=== PATIENT | male | born 1965 | race Caucasian/White ===

== ENCOUNTER 2016-09-30 03:29 | Emergency (ER) | payer MEDICARE ==
[2016-09-30] MEDS ORDERED: METOCLOPRAMIDE HCL INJ/PF 10 MG/2 ML SDV IV ONE (04:12)
[2016-09-30] MEDS ORDERED: MORPHINE SULFATE 10 MG/ML INJ IV ONE (04:12)
--- NOTE | 2016-09-30 04:12 | ER Document Report ---
ED General - General Chief Complaint: Nausea Stated Complaint: NAUSEA Mode of Arrival: Ambulatory Information source: Patient Notes: 50 yr old male presents with complaints of nausea without any abdominal pain over the past week. pt denies any vomiting, denies any chest pain sob , or any other comlpaints. pt notes he could not take his chronic pain meds since he was so nauseated. TRAVEL OUTSIDE OF THE [place] IN LAST 30 DAYS: No - HPI Onset: Last week Onset/Duration: Persistent Quality of pain: No pain Severity: Mild Pain Level: Denies Associated symptoms: Nausea Exacerbated by: Denies Relieved by: Denies Similar symptoms previously: No Recently seen / treated by doctor: No - Related Data Allergies/Adverse Reactions: Penicillins Allergy (Verified 12/08/13 10:34) vancomycin Allergy (Verified 07/27/16 11:06) Past Medical History - Social History Smoking Status: Never Smoker Cigarette use (# per day): No Chew tobacco use (# tins/day): No Smoking Education Provided: No Frequency of alcohol use: None Drug Abuse: None Family History: Arthritis, CAD, COPD, CVA, DM, Hyperlipidemia, Hypertension, Thyroid Disfunction. denies: Malignancy - Past Medical History Cardiac Medical History: Reports: Hx Hypercholesterolemia, Hx Hypertension Pulmonary Medical History: Reports: Hx Bronchitis, Hx Pneumonia Endocrine Medical History: Reports: Hx Diabetes Mellitus Type 2 - diabetic neuropathy all extremities Renal/ Medical History: Reports: Hx Benign Prostatic Hyperplasia, Hx Kidney Stones. Denies: Hx Peritoneal Dialysis Musculoskeltal Medical History: Reports Hx Arthritis, Reports Hx Gout, Reports Hx Muscle Weakness, Reports Hx Musculoskeletal Deformity, Reports Hx Musculoskeletal Trauma - hand Skin Medical History: Reports Hx Cellulitis Psychiatric Medical History: Reports: Hx Anxiety, Hx Bipolar Disorder, Hx Depression, Hx Obsessive Compulsive Disorder, Hx Post Traumatic Stress Disorder Traumatic Medical History: Reports: Hx Fractures Past Surgical History: Reports: Hx Adenoidectomy, Hx Cholecystectomy, Hx Orthopedic Surgery - back neck toe, Hx Tonsillectomy - Immunizations Immunizations up to date: Yes Hx Diphtheria, Pertussis, Tetanus Vaccination: Yes - 2014 Review of Systems - Review of Systems Notes: REVIEW OF SYSTEMS: CONSTITUTIONAL : Denies fever, chills, or sweats. Denies recent illness. EENT: Denies eye, ear, throat, or mouth pain or symptoms. Denies nasal or sinus congestion or discharge. Denies throat, tongue, or mouth swelling or difficulty swallowing. CARDIOVASCULAR: Denies chest pain. Denies palpitations or racing or irregular heart beat. Denies ankle edema. RESPIRATORY: Denies cough, cold, or chest congestion. Denies shortness of breath, difficulty breathing, or wheezing. GASTROINTESTINAL: Admits nausea GENITOURINARY: Denies difficulty urinating, painful urination, burning, frequency, blood in urine, or discharge. MUSCULOSKELETAL: Denies back or neck pain or stiffness. Denies joint pain or swelling. SKIN: Denies rash, lesions or sores. HEMATOLOGIC : Denies easy bruising or bleeding. LYMPHATIC: Denies swollen, enlarged glands. NEUROLOGICAL: Denies confusion or altered mental status. Denies passing out or loss of consciousness. Denies dizziness or lightheadedness. Denies headache. Denies weakness or paralysis or loss of use of either side. Denies problems with gait or speech. Denies sensory loss, numbness, or tingling. Denies seizures. PSYCHIATRIC: Denies anxiety or stress. Denies depression, suicidal ideation, or homicidal ideation. ALL OTHER SYSTEMS REVIEWED AND NEGATIVE. Dictation was performed using [employer] recognition software PHYSICAL EXAMINATION: GENERAL: Well-appearing, well-nourished and in no acute distress. HEAD: Atraumatic, normocephalic. EYES: Pupils equal round and reactive to light, extraocular movements intact, sclera anicteric, conjunctiva are normal. ENT: Nares patent, oropharynx clear without exudates. Moist mucous membranes. NECK: Normal range of motion, supple without lymphadenopathy LUNGS: Breath sounds clear to auscultation bilaterally and equal. No wheezes rales or rhonchi. HEART: Regular rate and rhythm without murmurs ABDOMEN: Soft, nontender, nondistended abdomen. No guarding, no rebound. No masses appreciated. Musculoskeletal: Normal range of motion, no pitting or edema. No cyanosis. NEUROLOGICAL: Cranial nerves grossly intact. Normal speech, normal gait. Normal sensory, motor exams PSYCH: Normal mood, normal affect. SKIN: Warm, Dry, normal turgor, no rashes or lesions noted. Physical Exam - Vital signs Vitals: Temp Pulse Resp BP Pulse Ox 97.6 F 89 20 125/64 94 09/30/16 03:44 09/30/16 03:44 09/30/16 03:44 09/30/16 03:44 09/30/16 03:44 Course - Re-evaluation Re-evalutation: 09/30/16 04:57 Lab work is pending at this time, patient is in no significant distress. He'll be given nausea control fluids 09/30/16 06:04 Patient's CBC CMP notes no significant abnormality, he did have some glucose in his urine and was given 2 L of fluid, patient notes he feels much better. His nausea is well controlled at this time. Cardiac enzymes pending 09/30/16 06:17 labs all appear well , will dc home since he feels well After performing a Medical Screening Examination, I estimate there is LOW risk for ACUTE CORONARY SYNDROME, RESPIRATORY FAILURE, SEPSIS OR MENINGITIS, thus I consider the discharge disposition reasonable. The patient and I have discussed the diagnosis and risks, and we agree with discharging home with close follow- up. We also discussed returning to the Emergency Department immediately if new or worsening symptoms occur. We have discussed the symptoms which are most concerning (e.g., changing or worsening pain, trouble swallowing or breathing, neck stiffness, fever) that necessitate immediate return. - Vital Signs Vital signs: Temp Pulse Resp BP Pulse Ox 97.6 F 89 20 125/64 94 09/30/16 03:44 09/30/16 03:44 09/30/16 03:44 09/30/16 03:44 09/30/16 03:44 - Laboratory Result Diagrams: 09/30/16 04:45 09/30/16 05:15 Laboratory results interpreted by me: 09/30/16 09/30/16 09/30/16 04:30 04:45 05:15 WBC 12.9 H MCHC 31.8 L RDW 14.9 H Seg Neutrophils % 78.7 H Absolute Neutrophils 10.2 H Carbon Dioxide 19 L Glucose 282 H POC Glucose Urine Protein 100 H Urine Glucose (UA) >=500 H Urine Ketones TRACE H 09/30/16 05:33 WBC MCHC RDW Seg Neutrophils % Absolute Neutrophils Carbon Dioxide Glucose POC Glucose 265 H Urine Protein Urine Glucose (UA) Urine Ketones - EKG Interpretation by Ms EKG shows normal: Sinus rhythm, [place], Intervals, QRS Complexes [place]/QRS: LAHB/LAFB When compared to previous EKG there are: Changes noted Discharge - Discharge Clinical Impression: Nausea, Hyperglycemia Condition: Stable Disposition: HOME, SELF-CARE Instructions: Nausea or Vomiting, Nonspecific ([facility]) Additional Instructions: Follow up with your physician tomorrow for further care or return to the ED IMMEDIATELY if symptoms worsen or new concerns occur Prescriptions: Promethazine HCl [Phenergan 25 mg Tablet] 1 - 2 tab PO Q6H PRN #15 tablet PRN Reason:
[2016-09-30] MEDS ORDERED: NORMAL SALINE 1000 ML 1,000 ML IV ONE ×2 (04:26→05:01)
[2016-09-30 04:53] LABS: APPEARANCE,URINE CLEAR; BILIRUBIN,URINE NEGATIVE (NEGATIVE); GLUCOSE, URINE >=500 mg/dL (NEGATIVE); KETONES,URINE TRACE mg/dL (NEGATIVE); LEUKOCYTE ESTERASE,URINE NEGATIVE (NEGATIVE); NITRITE,URINE NEGATIVE (NEGATIVE); PROTEIN,URINE 100 mg/dL (NEGATIVE); UROBILINOGEN,URINE NEGATIVE mg/dL (<2.0)
[2016-09-30 04:59] LABS: ABSOLUTE BASOPHILS # (AUTO) 0.1 10^3/uL (0.0-0.2); ABSOLUTE EOSINOPHILS # (AUTO) 0.2 10^3/uL (0.0-0.6); ABSOLUTE LYMPHOCYTES (AUTO) 1.8 10^3/uL (0.5-4.7); ABSOLUTE MONOCYTES (AUTO) 0.7 10^3/uL (0.1-1.4); ABSOLUTE NEUT (AUTO) 10.2 10^3/uL (1.7-8.2); BASOPHILS % (AUTO) 0.5 % (0-2); EOSINOPHILS % (AUTO) 1.4 % (0-6); HEMATOCRIT 44.9 % (37.9-51.0); HEMOGLOBIN 14.3 g/dL (13.5-17.0); LYMPHOCYTES % (AUTO) 13.9 % (13-45); MEAN CORPUSCULAR HEMOGLOBIN 27.4 pg (27.0-33.4); MEAN CORPUSCULAR HGB CONC 31.8 g/dL (32.0-36.0); MEAN CORPUSCULAR VOLUME 86 fl (80-97); MONOCYTES % (AUTO) 5.5 % (3-13); RED CELL DISTRIBUTION WIDTH 14.9 % (11.5-14.0); SEGMENTED NEUTROPHILS % (AUTO) 78.7 % (42-78); WHITE BLOOD COUNT 12.9 10^3/uL (4.0-10.5)
[2016-09-30] MEDS ORDERED: PROMETHAZINE HCL INJ 25 MG/1 ML VIAL IM ONE (05:14)
[2016-09-30] MEDS ORDERED: ONDANSETRON HCL INJ/PF 4 MG/2 ML SDV IV ONE (05:18)
[2016-09-30 05:42] LABS: VENOUS BLOOD BASE EXCESS -2.9 mmol/L; VENOUS BLOOD HCO3 21.7 mmol/L (20-32); VENOUS BLOOD PCO2 37.4 mmHg (35-63); VENOUS BLOOD PH 7.38 (7.30-7.42)
[2016-09-30 06:00] LABS: ALANINE AMINOTRANSFERASE 36 U/L (21-72); ALBUMIN 3.7 g/dL (3.5-5.0); ALKALINE PHOSPHATASE 96 U/L (38-126); ANION GAP 14 (5-19); ASPARTATE AMINO TRANSFERASE 25 U/L (17-59); BILIRUBIN,TOTAL 0.6 mg/dL (0.2-1.3); BLOOD UREA NITROGEN 14 mg/dL (7-20); CALCIUM 9.4 mg/dL (8.4-10.2); CARBON DIOXIDE 19 mmol/L (22-30); CHLORIDE 107 mmol/L (98-107); CREATININE RESULT 0.74 mg/dL (0.52-1.25); GLUCOSE 282 mg/dL (75-110); LIPASE 85.4 U/L (23-300); POTASSIUM 4.5 mmol/L (3.6-5.0); SODIUM 139.6 mmol/L (137-145); TOTAL PROTEIN 7.5 g/dL (6.3-8.2)
[2016-09-30 06:12] LABS: CREATINE KINASE MB 2.69 ng/mL (<4.55); TROPONIN I < 0.012 ng/mL
[2016-09-30] MEDS ORDERED: PROMETHAZINE HCL INJ 50 MG/1 ML VIAL ONE (06:13)
[2016-09-30 06:44] VITALS: BP 168/79
--- NOTE | 2016-09-30 09:24 | EKG REPORT ---
SEVERITY:- ABNORMAL ECG - SINUS RHYTHM RBBB AND LAFB LEFT VENTRICULAR HYPERTROPHY : Confirmed by: Liss Gloria MD 30-Sep-2016 09:23:40
== END 2016-09-30 06:45 | disposition home or self-care (01) ==
LOC: ER 03:29
DX: R11.0 Nausea (principal); E11.40 Type 2 diabetes mellitus with diabetic neuropathy, unspecified; E11.65 Type 2 diabetes mellitus with hyperglycemia; E78.00 Pure hypercholesterolemia, unspecified; I10 Essential (primary) hypertension; Z88.0 Allergy status to penicillin; Z88.3 Allergy status to other anti-infective agents; Z87.442 Personal history of urinary calculi; Z90.49 Acquired absence of other specified parts of digestive tract
CPT/HCPCS: 93005; 99284; 96372; 96361; 96374; 96375; 36415; 82553; 82962; 82550; 83690; 85025; 80053; 81001; 84484; 82803; 93010; J2765; J2270; J2550; J2405; J7030

== ENCOUNTER 2016-11-02 11:07 | Emergency (ER) | payer MEDICARE ==
[2016-11-02 13:07] LABS: ABSOLUTE BASOPHILS # (AUTO) 0.1 10^3/uL (0.0-0.2); ABSOLUTE EOSINOPHILS # (AUTO) 0.2 10^3/uL (0.0-0.6); ABSOLUTE MONOCYTES (AUTO) 0.9 10^3/uL (0.1-1.4); BASOPHILS % (AUTO) 0.7 % (0-2); EOSINOPHILS % (AUTO) 1.3 % (0-6); HEMATOCRIT 43.5 % (37.9-51.0); HEMOGLOBIN 14.4 g/dL (13.5-17.0); HGB HCT DIFFERENCE -0.3; LYMPHOCYTES % (AUTO) 21.1 % (13-45); MEAN CORPUSCULAR HEMOGLOBIN 27.8 pg (27.0-33.4); MEAN CORPUSCULAR HGB CONC 33.1 g/dL (32.0-36.0); MEAN CORPUSCULAR VOLUME 84 fl (80-97); MONOCYTES % (AUTO) 6.3 % (3-13); RED BLOOD COUNT 5.19 10^6/uL (4.35-5.55); RED CELL DISTRIBUTION WIDTH 14.3 % (11.5-14.0); SEGMENTED NEUTROPHILS % (AUTO) 70.6 % (42-78); WHITE BLOOD COUNT 14.2 10^3/uL (4.0-10.5)
[2016-11-02 13:27] LABS: ALANINE AMINOTRANSFERASE 35 U/L (21-72); ALBUMIN 3.7 g/dL (3.5-5.0); ALKALINE PHOSPHATASE 100 U/L (38-126); ANION GAP 14 (5-19); ASPARTATE AMINO TRANSFERASE 23 U/L (17-59); BILIRUBIN,TOTAL 0.6 mg/dL (0.2-1.3); BLOOD UREA NITROGEN 16 mg/dL (7-20); CALCIUM 9.9 mg/dL (8.4-10.2); CARBON DIOXIDE 21 mmol/L (22-30); CHLORIDE 102 mmol/L (98-107); CREATINE KINASE 71 U/L (55-170); CREATININE RESULT 0.71 mg/dL (0.52-1.25); GLUCOSE 217 mg/dL (75-110); POTASSIUM 4.5 mmol/L (3.6-5.0); SODIUM 136.7 mmol/L (137-145); TOTAL PROTEIN 8.2 g/dL (6.3-8.2)
[2016-11-02 13:38] LABS: CREATINE KINASE MB 1.85 ng/mL (<4.55)
[2016-11-02 13:42] LABS: TROPONIN I < 0.012 ng/mL
[2016-11-02 14:01] LABS: APPEARANCE,URINE CLEAR; BILIRUBIN,URINE NEGATIVE (NEGATIVE); GLUCOSE, URINE >=500 mg/dL (NEGATIVE); KETONES,URINE NEGATIVE (NEGATIVE); LEUKOCYTE ESTERASE,URINE NEGATIVE (NEGATIVE); NITRITE,URINE NEGATIVE (NEGATIVE); PROTEIN,URINE 30 mg/dL (NEGATIVE); URINE SPECIFIC GRAVITY 1.007; UROBILINOGEN,URINE NEGATIVE mg/dL (<2.0)
--- NOTE | 2016-11-02 18:37 | ER Document Report ---
ED General - General Chief Complaint: Anxiety Stated Complaint: WEAKNESS Notes: The patient is a 50-year-old male, past medical history anxiety, chronic pain, presents with increasing anxiety over the past few days. He says he feels like he is going to and feels like his blood pressure becomes elevated. He takes his Klonopin and the symptoms go away. He was taken off any blood pressure medications because his blood pressure would become low with a combination of his opioids, benzos and BP meds. Patient denies chest pain, shortness of breath, nausea, vomiting, suicidal ideation, homicidal ideation, headache, fevers or back pain. TRAVEL OUTSIDE OF THE [place] IN LAST 30 DAYS: No - Related Data Allergies/Adverse Reactions: Penicillins Allergy (Verified 11/02/16 18:42) vancomycin Allergy (Verified 11/02/16 18:42) Past Medical History - General Information source: Patient - Social History Smoking Status: Unknown if Ever Smoked Family History: Arthritis, CAD, COPD, CVA, DM, Hyperlipidemia, Hypertension, Thyroid Disfunction. denies: Malignancy - Past Medical History Cardiac Medical History: Reports: Hx Hypercholesterolemia, Hx Hypertension Pulmonary Medical History: Reports: Hx Bronchitis, Hx Pneumonia Endocrine Medical History: Reports: Hx Diabetes Mellitus Type 2 - diabetic neuropathy all extremities Renal/ Medical History: Reports: Hx Benign Prostatic Hyperplasia, Hx Kidney Stones. Denies: Hx Peritoneal Dialysis Musculoskeltal Medical History: Reports Hx Arthritis, Reports Hx Gout, Reports Hx Muscle Weakness, Reports Hx Musculoskeletal Deformity, Reports Hx Musculoskeletal Trauma - hand Skin Medical History: Reports Hx Cellulitis Psychiatric Medical History: Reports: Hx Anxiety, Hx Bipolar Disorder, Hx Depression, Hx Obsessive Compulsive Disorder, Hx Post Traumatic Stress Disorder Traumatic Medical History: Reports: Hx Fractures Past Surgical History: Reports: Hx Adenoidectomy, Hx Cholecystectomy, Hx Orthopedic Surgery - back neck toe, Hx Tonsillectomy - Immunizations Immunizations up to date: Yes Hx Diphtheria, Pertussis, Tetanus Vaccination: Yes - 2014 Review of Systems - Review of Systems Notes: REVIEW OF SYSTEMS: CONSTITUTIONAL: -fevers, -chills EENT: -eye pain, -difficulty swallowing, -nasal congestion CARDIOVASCULAR:-chest pain, -syncope. RESPIRATORY: -cough, -SOB GASTROINTESTINAL: -abdominal pain, - nausea, -vomiting, -diarrhea GENITOURINARY: -dysuria, -hematuria MUSCULOSKELETAL: -back pain, -neck pain SKIN: -rash or skin lesions. HEMATOLOGIC: -easy bruising or bleeding. LYMPHATIC: -swollen, enlarged glands. NEUROLOGICAL: -altered mental status or loss of consciousness, -headache, - neurologic symptoms PSYCHIATRIC: +anxiety, -depression. ALL OTHER SYSTEMS REVIEWED AND NEGATIVE. Physical Exam - Vital signs Vitals: Temp Pulse Resp BP Pulse Ox 98.4 F 92 14 169/84 H 93 11/02/16 11:28 11/02/16 11:28 11/02/16 11:28 11/02/16 11:28 11/02/16 11:28 - Notes Notes: PHYSICAL EXAMINATION: GENERAL: Well-appearing, well-nourished and in no acute distress. HEAD: Atraumatic, normocephalic. EYES: Pupils equal round and reactive to light, extraocular movements intact, sclera anicteric, conjunctiva are normal. ENT: nares patent, oropharynx clear without exudates. Moist mucous membranes. NECK: Normal range of motion, supple without lymphadenopathy LUNGS: Breath sounds clear to auscultation bilaterally and equal. No wheezes rales or rhonchi. HEART: Regular rate and rhythm without murmurs ABDOMEN: Soft, nontender, normoactive bowel sounds. No guarding, no rebound. No masses appreciated. EXTREMITIES: Normal range of motion, no pitting or edema. No cyanosis. NEUROLOGICAL: Cranial nerves grossly intact. Normal speech, normal gait. Normal sensory, motor, and reflex exams. PSYCH: Normal mood, normal affect. SKIN: Warm, Dry, normal turgor, no rashes or lesions noted. Course - Re-evaluation Re-evalutation: [facility] after consulting with me. He feels much better. Labs, EKG and chest x-ray ordered from triage are all unremarkable. Blood pressure is 169/80. Told him to discuss this with his primary care physician and I would not add an antihypertensive medication currently due to his history of hypotension. He is currently asymptomatic. Given her return precautions and he understands. - Vital Signs Vital signs: Temp Pulse Resp BP Pulse Ox 97.7 F 90 16 160/83 H 96 11/02/16 18:46 11/02/16 18:46 11/02/16 18:46 11/02/16 18:46 11/02/16 18:46 - Laboratory Result Diagrams: 11/02/16 12:45 11/02/16 12:45 Laboratory results interpreted by me: 11/02/16 11/02/16 11/02/16 12:45 12:45 12:45 WBC 14.2 H RDW 14.3 H Absolute Neutrophils 10.0 H Sodium 136.7 L Carbon Dioxide 21 L Glucose 217 H Urine Protein 30 H Urine Glucose (UA) >=500 H Discharge - Discharge Clinical Impression: Anxiety Hypertension Qualifiers: Hypertension type: unspecified secondary hypertension Qualified Code(s): I15.9 - Secondary hypertension, unspecified Condition: Good Disposition: HOME, SELF-CARE Instructions: Anxiety ([facility]) Additional Instructions: HIGH BLOOD PRESSURE, NOT TREAT: When your blood pressure was taken today it was elevated. Today's reading was 171/90. We do not think you need to have your blood pressure treated today. Sometimes, stress or illness causes a temporary elevation of your blood pressure. We suggest that you get your blood pressure measured again during the next few days to see if this elevated blood pressure is more than a temporary abnormality. If your blood pressure is greater than 150/90 on each occasion, you must have treatment. Some simple things you can do to help are: If you have blood pressure medicine but aren't using it regularly, start taking it again. Get some aerobic exercise for at least 20 minutes on a daily basis. (See your doctor before beginning a new exercise program.) Eat a low-fat diet. Lose excess weight. Avoid salty foods and avoid adding salt to any of the foods you eat. Avoid diet pills, decongestants, "energizing" herbs, and other medicines that elevate blood pressure. If left untreated, hypertension greatly enhances your risk for developing heart disease and strokes. Please don't ignore this problem. FOLLOW-UP CARE: If you have been referred to a physician for follow-up care, call the physician s office for an appointment as you were instructed or within the next two days. If you experience worsening or a significant change in your symptoms, notify the physician immediately or return to the Emergency Department at any time for re-evaluation. Anxiety The physician feels that some of your health problems are being caused by anxiety. Anxiety affects your health in many ways. Anxiety alone can cause palpitations, sweats, chest pains, abdominal pains, shortness of breath, and headaches. It contributes to ulcer disease, high blood pressure, irritable bowel syndrome, and has been shown to cause flare-ups of many other diseases. Anxiety is not a simple disorder to treat. If the anxiety is due to recent life stresses, you may simply need time to "work through" the changes. If the anxiety is due to an underlying unhappiness with yourself or due to psychiatric disturbance, professional help will be needed. Your physician can refer you for further help if needed. Anti-anxiety medication is occasionally given if the stress is acute or if you are having trouble sleeping. Chronic or frequent use of these medications is not a good idea because the body becomes reliant on it, preventing you from dealing with life's normal stresses. Forms: Parent Work Note
[2016-11-02 18:51] VITALS: BP 160/83
== END 2016-11-02 19:00 | disposition home or self-care (01) ==
LOC: ER 11:07
DX: F41.9 Anxiety disorder, unspecified (principal); I10 Essential (primary) hypertension; G89.29 Other chronic pain; E11.40 Type 2 diabetes mellitus with diabetic neuropathy, unspecified; Z79.899 Other long term (current) drug therapy; Z79.891 Long term (current) use of opiate analgesic; Z88.1 Allergy status to other antibiotic agents; Z88.0 Allergy status to penicillin
CPT/HCPCS: 36415; 80053; 81001; 82550; 82553; 84484; 85025; 99284

== ENCOUNTER 2016-11-28 02:46 | Emergency (ER) | payer MEDICARE ==
[2016-11-28 03:29] LABS: ABSOLUTE BASOPHILS # (AUTO) 0.1 10^3/uL (0.0-0.2); ABSOLUTE EOSINOPHILS # (AUTO) 0.3 10^3/uL (0.0-0.6); ABSOLUTE LYMPHOCYTES (AUTO) 2.9 10^3/uL (0.5-4.7); ABSOLUTE MONOCYTES (AUTO) 0.8 10^3/uL (0.1-1.4); ABSOLUTE NEUT (AUTO) 6.6 10^3/uL (1.7-8.2); BASOPHILS % (AUTO) 0.8 % (0-2); HEMATOCRIT 41.4 % (37.9-51.0); HEMOGLOBIN 13.9 g/dL (13.5-17.0); HGB HCT DIFFERENCE 0.3; LYMPHOCYTES % (AUTO) 27.4 % (13-45); MEAN CORPUSCULAR HEMOGLOBIN 28.5 pg (27.0-33.4); MEAN CORPUSCULAR HGB CONC 33.6 g/dL (32.0-36.0); MEAN CORPUSCULAR VOLUME 85 fl (80-97); MONOCYTES % (AUTO) 7.2 % (3-13); RED BLOOD COUNT 4.89 10^6/uL (4.35-5.55); RED CELL DISTRIBUTION WIDTH 14.5 % (11.5-14.0); SEGMENTED NEUTROPHILS % (AUTO) 61.6 % (42-78); WHITE BLOOD COUNT 10.6 10^3/uL (4.0-10.5)
[2016-11-28] MEDS ORDERED: CLONAZEPAM 1 MG TABLET PO ONE (03:29)
--- NOTE | 2016-11-28 03:37 | ER Document Report ---
ED General - General Chief Complaint: Anxiety Stated Complaint: SHORTNESS OF BREATH Time seen by provider: 03:30 Notes: Patient is a 51-year-old male that comes emergency department for chief complaint of sensation of feeling short of breath and anxious for almost an hour or so a couple of times a day for the past week. Patient denies that this is worse with exertion, he denies any chest pain, nausea. Patient states that he has been feeling these symptoms ever since he stopped taking Klonopin 1 mg twice a day, he states his primary care stop this medication and referred him to psychiatry for them to prescribe this, he has not seen them yet but has an appointment this week. He denies smoking, history of CAD or [place], he states he does have a history of atrial fibrillation that he takes aspirin for but no other medications. He is on chronic pain management including oxycodone and morphine. He denies any current symptoms other than "feeling anxious and having racing thoughts". He denies SI or HI. TRAVEL OUTSIDE OF THE [place] IN LAST 30 DAYS: No - Related Data Allergies/Adverse Reactions: Penicillins Allergy (Verified 11/02/16 18:42) vancomycin Allergy (Verified 11/02/16 18:42) Past Medical History - General Information source: Patient - Social History Smoking Status: Never Smoker Frequency of alcohol use: None Drug Abuse: None Lives with: Family Family History: Arthritis, CAD, COPD, CVA, DM, Hyperlipidemia, Hypertension, Thyroid Disfunction. denies: Malignancy - Past Medical History Cardiac Medical History: Reports: Hx Hypercholesterolemia, Hx Hypertension Pulmonary Medical History: Reports: Hx Bronchitis, Hx Pneumonia Endocrine Medical History: Reports: Hx Diabetes Mellitus Type 2 - diabetic neuropathy all extremities Renal/ Medical History: Reports: Hx Benign Prostatic Hyperplasia, Hx Kidney Stones. Denies: Hx Peritoneal Dialysis Musculoskeltal Medical History: Reports Hx Arthritis, Reports Hx Gout, Reports Hx Muscle Weakness, Reports Hx Musculoskeletal Deformity, Reports Hx Musculoskeletal Trauma - hand Skin Medical History: Reports Hx Cellulitis Psychiatric Medical History: Reports: Hx Anxiety, Hx Bipolar Disorder, Hx Depression, Hx Obsessive Compulsive Disorder, Hx Post Traumatic Stress Disorder Traumatic Medical History: Reports: Hx Fractures Past Surgical History: Reports: Hx Adenoidectomy, Hx Cholecystectomy, Hx Orthopedic Surgery - back neck toe, Hx Tonsillectomy - Immunizations Immunizations up to date: Yes Hx Diphtheria, Pertussis, Tetanus Vaccination: Yes - 2014 Review of Systems - Review of Systems Constitutional: No symptoms reported EENT: No symptoms reported Cardiovascular: See HPI Respiratory: No symptoms reported Gastrointestinal: No symptoms reported Genitourinary: No symptoms reported Male Genitourinary: No symptoms reported Musculoskeletal: No symptoms reported Skin: No symptoms reported Hematologic/Lymphatic: No symptoms reported Neurological/Psychological: See HPI Physical Exam - Vital signs Vitals: Pulse Ox 97 11/28/16 02:58 Interpretation: Normal - General General appearance: Anxious - Patient has a nervous look on his face, speaks quietly and quickly - HEENT Head: Normocephalic, Atraumatic Eyes: Normal Conjunctiva: Normal Extraocular movements intact: Yes Eyelashes: Normal Pupils: PERRL Nasal: Normal Mouth/Lips: Normal Mucous membranes: Normal Pharynx: Normal Neck: Normal - Respiratory Respiratory status: No respiratory distress Chest status: Nontender Breath sounds: Normal. No: Decreased air movement, Nonproductive cough, Wheezing Chest palpation: Normal - Cardiovascular Rhythm: Regular. No: Tachycardia Heart sounds: Normal auscultation, S1 appreciated, S2 appreciated Murmur: No - Abdominal Inspection: Normal Distension: No distension Bowel sounds: Normal Tenderness: Nontender. No: Tender, Guarding Organomegaly: No organomegaly - Back Back: Normal, Nontender. No: Tender - Extremities General upper extremity: Normal inspection, Nontender, Normal strength, Normal temperature General lower extremity: Normal inspection, Nontender, Normal strength, Normal temperature - Neurological Neuro grossly intact: Yes Cognition: Normal Orientation: AAOx4 [place] Coma Scale Eye Opening: Spontaneous [place] Coma Scale Verbal: Oriented [place] Coma Scale Motor: Obeys Commands [place] Coma Scale Total: 15 Speech: Normal Motor strength normal: LUE, RUE, LLE, RLE Sensory: Normal - Psychological Associated symptoms: Normal affect, Normal mood - Skin Skin Temperature: Warm Skin Moisture: Dry Skin Color: Normal Course - Re-evaluation Re-evalutation: EKG compared to prior, no acute changes, patient currently only stating he is anxious, he does appear anxious, given Klonopin. CBC unremarkable, chemistry shows hyperglycemia at 245 but bicarbonate and anion gap are normal. Chest x- ray is unremarkable. Cardiac enzymes negative despite patient stating symptoms have been going on for a week. On reexamination patient is well-appearing, calm , relaxed, denies any current symptoms. Suspect this is anxiety related, low suspicion of any acute abnormality based on workup and evaluation. Patient requesting a few Klonopin medications pending his referral to psychiatry for additional management. Again denies SI or HI, comfortable and laughing at bedside. at bedside. Discussed return precautions in detail, patient states understanding and agreement. - Vital Signs Vital signs: Temp Pulse Resp BP Pulse Ox 98.6 F 19 147/84 H 97 11/28/16 05:16 11/28/16 05:02 11/28/16 05:02 11/28/16 05:02 - Laboratory Result Diagrams: 11/28/16 03:00 11/28/16 03:00 Laboratory results interpreted by me: 11/28/16 11/28/16 11/28/16 03:00 03:00 03:50 WBC 10.6 H RDW 14.5 H Glucose 245 H Calcium 10.6 H Total Protein 8.3 H Urine Protein 30 H Urine Glucose (UA) >=500 H Discharge - Discharge Clinical Impression: Anxiety, Shortness of breath Condition: Stable Disposition: HOME, SELF-CARE Instructions: Anxiety ([facility]) Additional Instructions: Your workup does not show any acute abnormalities. Monitor your blood glucose, this could be elevated related to stress/cortisol but you may need to adjust your insulin, follow-up with your primary care for additional management. Take the Klonopin as prescribed, follow up with psychiatry for additional management, return to the emergency department for any concerning symptoms. Prescriptions: Clonazepam [Klonopin 1 mg Tablet] 1 mg PO BID #12 tab Forms: Parent Work Note
[2016-11-28 03:42] LABS: ALANINE AMINOTRANSFERASE 31 U/L (21-72); ALBUMIN 4.4 g/dL (3.5-5.0); ALKALINE PHOSPHATASE 122 U/L (38-126); ANION GAP 15 (5-19); ASPARTATE AMINO TRANSFERASE 27 U/L (17-59); BILIRUBIN,TOTAL 0.6 mg/dL (0.2-1.3); BLOOD UREA NITROGEN 18 mg/dL (7-20); CALCIUM 10.6 mg/dL (8.4-10.2); CARBON DIOXIDE 26 mmol/L (22-30); CHLORIDE 100 mmol/L (98-107); CREATINE KINASE 101 U/L (55-170); CREATININE RESULT 0.72 mg/dL (0.52-1.25); GLUCOSE 245 mg/dL (75-110); POTASSIUM 4.6 mmol/L (3.6-5.0); SODIUM 140.7 mmol/L (137-145); TOTAL PROTEIN 8.3 g/dL (6.3-8.2)
[2016-11-28 03:53] LABS: CREATINE KINASE MB 2.62 ng/mL (<4.55); TROPONIN I < 0.012 ng/mL
[2016-11-28 04:24] LABS: APPEARANCE,URINE CLEAR; BILIRUBIN,URINE NEGATIVE (NEGATIVE); GLUCOSE, URINE >=500 mg/dL (NEGATIVE); KETONES,URINE NEGATIVE (NEGATIVE); LEUKOCYTE ESTERASE,URINE NEGATIVE (NEGATIVE); NITRITE,URINE NEGATIVE (NEGATIVE); PROTEIN,URINE 30 mg/dL (NEGATIVE); URINE SPECIFIC GRAVITY 1.014; UROBILINOGEN,URINE NEGATIVE mg/dL (<2.0)
[2016-11-28 05:06] VITALS: BP 147/84
--- NOTE | 2016-11-28 17:19 | EKG REPORT ---
SEVERITY:- ABNORMAL ECG - SINUS RHYTHM RBBB AND LAFB : Confirmed by: Liss Gloria MD 28-Nov-2016 17:19:21
== END 2016-11-28 05:24 | disposition home or self-care (01) ==
LOC: ER 02:46
DX: F41.9 Anxiety disorder, unspecified (principal); R06.02 Shortness of breath; E11.65 Type 2 diabetes mellitus with hyperglycemia; E11.40 Type 2 diabetes mellitus with diabetic neuropathy, unspecified; G89.29 Other chronic pain; I48.91 Unspecified atrial fibrillation; Z79.82 Long term (current) use of aspirin; Z79.891 Long term (current) use of opiate analgesic; Z88.0 Allergy status to penicillin; Z88.1 Allergy status to other antibiotic agents; I10 Essential (primary) hypertension
CPT/HCPCS: 93005; 99283; 99284; 36415; 82553; 82550; 85025; 80053; 81001; 84484; 83880; 71010; 93010; A9270

== ENCOUNTER → 2016-12-13 | Outpatient (CLI) | payer MEDICARE ==
[2016-12-13 09:37] LABS: CHOLESTEROL 200.97 mg/dL (0-200); Direct HDL 49 mg/dL (>40); TRIGLYCERIDES 216 mg/dL (<150)
[2016-12-13 09:48] LABS: DIRECT LDL 127 mg/dL (<100)
[2016-12-13 09:52] LABS: VLDL CHOLESTEROL 43.2 mg/dL (10-31)
== END ==
LOC: OD 07:30
PROVIDERS: ATTEND Internal Medicine Cardiovascular Disease
DX: I49.5 Sick sinus syndrome (principal); E11.65 Type 2 diabetes mellitus with hyperglycemia; E11.40 Type 2 diabetes mellitus with diabetic neuropathy, unspecified; R06.02 Shortness of breath
CPT/HCPCS: 36415; 80061; 83036

== ENCOUNTER 2017-03-26 03:36 | Emergency (ER) | payer MEDICARE ==
[2017-03-26] MEDS ORDERED: DOXYCYCLINE HYCLATE 100 MG TABLET PO ONE (03:47)
--- NOTE | 2017-03-26 03:50 | ER Document Report ---
ED General - General Stated Complaint: HIGH BLOOD SUGAR Time Seen by Provider: 03/26/17 03:43 Notes: Patient is a pleasant 51-year-old male who presents with complaint of high blood sugar. Says for the last days he has felt a little bit weaker than normal. Tonight he checked his blood sugar was 581. He took 100 units of NovoLog. Says he is starting to feel some improved. He denies any fevers. Denies any infections that he is aware of except for he says he did have some fleabites to his left shoulder that he has been scratching. No vomiting. No diarrhea. No chest pain. No dysuria. No abdominal pain. No other complaints at this time. No Cough or congestion. TRAVEL OUTSIDE OF THE [place] IN LAST 30 DAYS: No - Related Data Allergies/Adverse Reactions: Penicillins Allergy (Verified 11/02/16 18:42) vancomycin Allergy (Verified 11/02/16 18:42) Past Medical History - Social History Smoking Status: Unknown if Ever Smoked Frequency of alcohol use: None Drug Abuse: None Family History: Arthritis, CAD, COPD, CVA, DM, Hyperlipidemia, Hypertension, Thyroid Disfunction. denies: Malignancy - Past Medical History Cardiac Medical History: Reports: Hx Hypercholesterolemia, Hx Hypertension Pulmonary Medical History: Reports: Hx Bronchitis, Hx Pneumonia Endocrine Medical History: Reports: Hx Diabetes Mellitus Type 2 - diabetic neuropathy all extremities Renal/ Medical History: Reports: Hx Benign Prostatic Hyperplasia, Hx Kidney Stones. Denies: Hx Peritoneal Dialysis Musculoskeltal Medical History: Reports Hx Arthritis, Reports Hx Gout, Reports Hx Muscle Weakness, Reports Hx Musculoskeletal Deformity, Reports Hx Musculoskeletal Trauma - hand Skin Medical History: Reports Hx Cellulitis Psychiatric Medical History: Reports: Hx Anxiety, Hx Bipolar Disorder, Hx Depression, Hx Obsessive Compulsive Disorder, Hx Post Traumatic Stress Disorder Traumatic Medical History: Reports: Hx Fractures Past Surgical History: Reports: Hx Adenoidectomy, Hx Cholecystectomy, Hx Orthopedic Surgery - back neck toe, Hx Tonsillectomy - Immunizations Immunizations up to date: Yes Hx Diphtheria, Pertussis, Tetanus Vaccination: Yes - 2014 Review of Systems - Review of Systems Notes: My Normal Review Basic REVIEW OF SYSTEMS: CONSTITUTIONAL : Denies fever, chills, or sweats. Denies recent illness. EENT: Denies eye, ear, throat, or mouth pain or symptoms. Denies nasal or sinus congestion. RESPIRATORY: Denies cough, cold, or chest congestion. Denies shortness of breath, difficulty breathing, or wheezing. GASTROINTESTINAL: Denies abdominal pain. Denies nausea, vomiting, or diarrhea. Denies constipation. Last BM: GENITOURINARY: Denies difficulty urinating, painful urination, burning, frequency, or blood in urine. MUSCULOSKELETAL: Denies neck or back pain or joint pain or swelling. SKIN: Fleabites to left shoulder. HEMATOLOGIC : Denies easy bruising or bleeding. LYMPHATIC: Denies swollen, enlarged glands. NEUROLOGICAL: Denies altered mental status or loss of consciousness. Denies headache. Denies weakness or paralysis or loss of use of either side. Denies problems with gait or speech. Denies sensory or motor loss. ALL OTHER SYSTEMS REVIEWED AND NEGATIVE. Physical Exam - Vital signs Vitals: Pulse Ox 96 03/26/17 03:39 - Notes Notes: General Appearance: Well nourished, alert, cooperative, no acute distress, no obvious discomfort. Well appearing. Vitals: reviewed, See vital signs table. Head: no swelling or tenderness to the head Eyes: PERRL, EOMI, Conjuctiva clear Mouth: No decreasd moisture Lungs: No wheezing, No rales, No rhonci, No accessory muscle use, good air exchange bilaterally. Heart: Normal rate, Regular rythm, No murmur, no rub Abdomen: Normal BS, soft, No rigidity, No abdominal tenderness, No guarding, no rebound, no abdominal masses, no organomegaly Extremities: strength 5/5 in all extremities, good pulses in all extremities, no swelling or tenderness in the extremities, no edema. Skin: Patient has several scratch zavala to his left shoulder from where his been scratching his shoulder. He does have some spreading erythema from the area consistent with the secondary cellulitis. Neuro: speech clear, oriented x 3, normal affect, responds appropriately to questions. Course - Re-evaluation Re-evalutation: 03/26/17 05:00 Looks very well clinically. His chemistry panel shows no evidence of acidosis. His blood sugars trending downward appropriately. His repeat Accu-Chek is now 249. Will place him on doxycycline. He has a early cellulitis in the left shoulder. There is no associated abscess. I feel that it will do well with antibiotic. I encouraged him return to ER if he has worsening of his symptoms , of the redness or cellulitis, recurrent high blood sugars not responding to insulin, or if he feels unwell. Patient agrees with plan will be discharged home. Dictation of this chart was performed using voice recognition software; therefore, there may be some unintended grammatical errors. - Vital Signs Vital signs: Temp Pulse Resp BP Pulse Ox 146/64 H 96 03/26/17 03:41 03/26/17 03:41 - Laboratory Result Diagrams: 03/26/17 03:39 Laboratory results interpreted by me: 03/26/17 03/26/17 03:39 03:39 Sodium 134.9 L Glucose 412 H* POC Glucose 360 H Discharge - Discharge Clinical Impression: Hyperglycemia Cellulitis Qualifiers: Site of cellulitis: unspecified site Qualified Code(s): L03.90 - Cellulitis, unspecified Condition: Good Disposition: HOME, SELF-CARE Additional Instructions: Please keep a close eye on your blood sugar and treat accordingly with your insulin. Please return to the ER if you have blood sugars above 500 that are not responding to your insulin, and fevers, or any spreading redness on your shoulder. Please follow up with your doctor in 2 days for reevaluation. Prescriptions: Doxycycline Hyclate 100 mg PO BID #14 capsule Forms: Return to Work
[2017-03-26 04:13] LABS: ANION GAP 12 (5-19); BLOOD UREA NITROGEN 14 mg/dL (7-20); CALCIUM 8.6 mg/dL (8.4-10.2); CARBON DIOXIDE 22 mmol/L (22-30); CHLORIDE 101 mmol/L (98-107); CREATININE RESULT 0.92 mg/dL (0.52-1.25); POTASSIUM 4.2 mmol/L (3.6-5.0); SODIUM 134.9 mmol/L (137-145)
[2017-03-26 04:20] LABS: GLUCOSE 412 mg/dL (75-110)
[2017-03-26 05:39] VITALS: BP 111/64
== END 2017-03-26 05:39 | disposition home or self-care (01) ==
LOC: ER 03:36
DX: R73.9 Hyperglycemia, unspecified (principal); L03.90 Cellulitis, unspecified
CPT/HCPCS: 99285; 36415; 82962; 80048; A9270

== ENCOUNTER 2017-04-16 19:54 | Emergency (ER) | payer MEDICARE ==
--- NOTE | 2017-04-16 20:36 | ER Document Report ---
ED General - General Mode of Arrival: Ambulatory Information source: Patient TRAVEL OUTSIDE OF THE [place] IN LAST 30 DAYS: No - HPI Onset: Other - Refer to HPI notes Similar symptoms previously: Yes Recently seen / treated by doctor: Yes <BERTHA ALANIZ - Last Filed: 04/16/17 23:46> <DARYA DANIELSON - Last Filed: 04/17/17 03:24> - General Chief Complaint: Foot Pain Stated Complaint: PAIN ALL OVER Time Seen by Provider: 04/16/17 20:21 Notes: Patient is a 51-year-old male presents emergency department for a possible abscess in his left armpit. Patient states he noticed this yesterday. Patient also complained states the pain to his left toe. Patient has neuropathy and is taking Lyrica. Patient is a insulin-dependent diabetic. Patient also has had frequent urination and medical problems. Patient's last hemoglobin A1c was 10. Patient states that she also has a cough. Patient has been taking Motrin with no relief. Patient has Bentyl and oxycodone to his pain management physician but states that he has not been taking these. Patient also states that he is out of place at all patches. Patient denies a history of gout or other symptoms. Patient's primary care physician is [facility] and states that he has a follow-up appointment tomorrow. Patient is allergic to penicillin and vancomycin. Patient does request pain medication multiple times during the exam. (BERTHA ALANIZ) - Related Data Allergies/Adverse Reactions: Penicillins Allergy (Verified 11/02/16 18:42) vancomycin Allergy (Verified 11/02/16 18:42) Past Medical History - General Information source: Patient - Social History Smoking Status: Unknown if Ever Smoked Family History: Arthritis, CAD, COPD, CVA, DM, Hyperlipidemia, Hypertension, Thyroid Disfunction Patient has suicidal ideation: No Patient has homicidal ideation: No - Past Medical History Cardiac Medical History: Reports: Hx Hypercholesterolemia, Hx Hypertension Pulmonary Medical History: Reports: Hx Bronchitis, Hx Pneumonia Endocrine Medical History: Reports: Hx Diabetes Mellitus Type 2 - diabetic neuropathy all extremities Renal/ Medical History: Reports: Hx Benign Prostatic Hyperplasia, Hx Kidney Stones Musculoskeltal Medical History: Reports Hx Arthritis, Reports Hx Gout, Reports Hx Muscle Weakness, Reports Hx Musculoskeletal Deformity, Reports Hx Musculoskeletal Trauma - hand Skin Medical History: Reports Hx Cellulitis Psychiatric Medical History: Reports: Hx Anxiety, Hx Bipolar Disorder, Hx Depression, Hx Obsessive Compulsive Disorder, Hx Post Traumatic Stress Disorder Traumatic Medical History: Reports: Hx Fractures Past Surgical History: Reports: Hx Adenoidectomy, Hx Cholecystectomy, Hx Orthopedic Surgery - back neck toe, Hx Tonsillectomy - Immunizations Immunizations up to date: Yes Hx Diphtheria, Pertussis, Tetanus Vaccination: Yes - 2014 <BERTHA ALANIZ - Last Filed: 04/16/17 23:46> Review of Systems - Review of Systems Constitutional: No symptoms reported EENT: No symptoms reported Cardiovascular: No symptoms reported Respiratory: No symptoms reported Gastrointestinal: No symptoms reported Genitourinary: No symptoms reported Male Genitourinary: No symptoms reported Musculoskeletal: See HPI Skin: See HPI Hematologic/Lymphatic: No symptoms reported Neurological/Psychological: No symptoms reported -: Yes All other systems reviewed and negative <BERTHA ALANIZ - Last Filed: 04/16/17 23:46> Physical Exam <BERTHA ALANIZ - Last Filed: 04/16/17 23:46> <DARYA DANIELSON - Last Filed: 04/17/17 03:24> - Notes Notes: GENERAL: Alert, interacts well. No acute distress. HEAD: Normocephalic, atraumatic. EYES: Appear normal. Pupils equal, round, and reactive to light. ENT: Moist mucus membranes, tongue midline. NECK: Full range of motion. Supple. Trachea midline. LUNGS: Clear to auscultation bilaterally, no wheezes, rales, or rhonchi. No respiratory distress. HEART: Regular rate and rhythm. No murmurs, gallops, or rubs. ABDOMEN: Soft, non-tender. Non-distended. Normal bowel sounds. EXTREMITIES: Moves all 4 extremities spontaneously. Normal strength. No edema. NEUROLOGICAL: Alert and oriented x3. Normal speech. No focal neurological deficits. GSC 15. PSYCH: Normal affect, normal mood. SKIN: Warm, dry, normal turgor. Patient has a small pimple to his left axilla which is not secondary cellulitic or actively draining, is not fluctuant and is not appearing to require I&D at this time. There is no erythema, swelling, or signs of infection to the patient's toes or feet. (BERTHA ALANIZ) Course - Laboratory Result Diagrams: 04/16/17 21:35 04/16/17 21:35 <BERTHA ALANIZ - Last Filed: 04/16/17 23:46> - Laboratory Result Diagrams: 04/16/17 21:35 04/16/17 21:35 <DARYA DANIELSON - Last Filed: 04/17/17 03:24> - Re-evaluation Re-evalutation: 04/16/17 21:38 Patient presents emergency department via EMS with a chief complaint of pain everywhere. He is a chronic pain patient on oxycodone and fentanyl told EMS that he ran out of it. He sees chronic pain management for that. History of diabetic neuropathy his sugar is elevated his hemoglobin A1c has been greater than 10 but is not DKA. In addition to that he has a small pimple to his left axilla which is not secondary cellulitic or actively draining is not fluctuant requiring I&D incision. He has been given clindamycin for that. He has a slight elevated white count of 15,000 him on clindamycin. He is going to follow -up with his primary care physician 1-2 days on recheck and chronic pain specialist for ongoing pain management control issues. Has chronic pain and is on fentanyl and oxycodone. He is begging and pleading for me to give him oxycodone by name and OxyContin. He is not here for management of chronic pain. He wants his lab auditory labs checked there is a delay in the lab the nurses tried to obtain them. I told him we are not going to give him any OxyContin in the emergency department I suspect that he is out of his medication the admits to being on the fentanyl. Patient is yelling and screaming at the nurse which is not appropriate. I am not going to give him any narcotic pain medication because he is out of his chronic pain medication. 04/16/17 22:25 04/16/17 22:33 Myself and nurse discharge patient at the bedside patient very argumentative saying we did not treat his pain. Explained to him that the EMS said that he was out of his pain medication he has chronic pain and is not new or different tonight her policy we are following this. Will make sure that we watch this behavior going forward as we do not treat chronic pain in the emergency department (DARYA DANIELSON) - Laboratory Laboratory results interpreted by me: 04/16/17 04/16/17 04/16/17 21:20 21:35 21:35 WBC 15.5 H RDW 15.0 H Absolute Neutrophils 10.7 H Glucose 250 H Urine Glucose (UA) >=500 H Discharge <BERTHA ALANIZ - Last Filed: 04/16/17 23:46> <DARYA DANIELSON - Last Filed: 04/17/17 03:24> - Discharge Clinical Impression: Infected pimple left axilla, chronic pain out of medication, Request for narcotic pain medication Condition: Stable Disposition: HOME, SELF-CARE Additional Instructions: Infected pimple You have an infection of your skin and underlying soft tissues called cellulitis to the left axilla does not require drainage at this point and is due to bacteria, which can enter through any break in the skin, or even through an irritated hair follicle. Untreated, cellulitis will usually worsen. Antibiotics are required. Usually, warm packs or warm soaks, and elevation of the infected area are recommended. You should start getting better within 24 to 36 hours. Most infections respond quickly to the right medication. Follow-up care is important, however, to check for abscess (boil) formation, unsuspected foreign body, or resistant infection. If you develop fever, chills, or if the area of infection is becoming rapidly more swollen or painful, call the doctor at once. Prescriptions: Clindamycin HCl 300 mg PO BID #14 capsule Referrals: CINDI MOORE MD [Primary Care Provider] - (follow Up with primary care physician in 1-2 days pain specialist as needed for ongoing chronic pain management. Return for increasing worsening or new symptoms) Scribe Attestation: 04/16/17 22:25 I personally performed the services described in the documentation reviewed the documentation recorded by my scribe in my presence and it accurately and completely records my words and actions (DARYA DANIELSON) Scribe Documentation - Scribe Written by Derrek:: Derrek Erwin, 04/16/2017 23:53 acting as scribe for :: Audie <BERTHA ALANIZ - Last Filed: 04/16/17 23:46>
[2017-04-16] MEDS ORDERED: CLINDAMYCIN HCL 150 MG CAPSULE PO ONE (20:37)
[2017-04-16 21:51] LABS: ABSOLUTE BASOPHILS # (AUTO) 0.2 10^3/uL (0.0-0.2); ABSOLUTE EOSINOPHILS # (AUTO) 0.5 10^3/uL (0.0-0.6); ABSOLUTE LYMPHOCYTES (AUTO) 3.5 10^3/uL (0.5-4.7); ABSOLUTE MONOCYTES (AUTO) 0.7 10^3/uL (0.1-1.4); ABSOLUTE NEUT (AUTO) 10.7 10^3/uL (1.7-8.2); BASOPHILS % (AUTO) 1.1 % (0-2); EOSINOPHILS % (AUTO) 2.9 % (0-6); HEMATOCRIT 43.4 % (37.9-51.0); HEMOGLOBIN 14.2 g/dL (13.5-17.0); HGB HCT DIFFERENCE -0.8; LYMPHOCYTES % (AUTO) 22.4 % (13-45); MEAN CORPUSCULAR HEMOGLOBIN 27.6 pg (27.0-33.4); MEAN CORPUSCULAR HGB CONC 32.7 g/dL (32.0-36.0); MEAN CORPUSCULAR VOLUME 84 fl (80-97); MONOCYTES % (AUTO) 4.8 % (3-13); RED BLOOD COUNT 5.15 10^6/uL (4.35-5.55); SEGMENTED NEUTROPHILS % (AUTO) 68.8 % (42-78); WHITE BLOOD COUNT 15.5 10^3/uL (4.0-10.5)
[2017-04-16 21:55] LABS: APPEARANCE,URINE CLEAR; BILIRUBIN,URINE NEGATIVE (NEGATIVE); GLUCOSE, URINE >=500 mg/dL (NEGATIVE); KETONES,URINE NEGATIVE (NEGATIVE); LEUKOCYTE ESTERASE,URINE NEGATIVE (NEGATIVE); NITRITE,URINE NEGATIVE (NEGATIVE); PROTEIN,URINE NEGATIVE (NEGATIVE); URINE SPECIFIC GRAVITY 1.026; UROBILINOGEN,URINE NEGATIVE mg/dL (<2.0)
[2017-04-16 22:09] LABS: ANION GAP 15 (5-19); BLOOD UREA NITROGEN 17 mg/dL (7-20); CALCIUM 9.4 mg/dL (8.4-10.2); CARBON DIOXIDE 24 mmol/L (22-30); CHLORIDE 102 mmol/L (98-107); CREATININE RESULT 0.78 mg/dL (0.52-1.25); GLUCOSE 250 mg/dL (75-110); POTASSIUM 4.6 mmol/L (3.6-5.0); SODIUM 141.3 mmol/L (137-145)
[2017-04-17 06:20] VITALS: BP 145/88
== END 2017-04-16 22:32 | disposition home or self-care (01) ==
LOC: ER 19:54
DX: L02.412 Cutaneous abscess of left axilla (principal); M79.675 Pain in left toe(s); G89.29 Other chronic pain; R52 Pain, unspecified; E11.9 Type 2 diabetes mellitus without complications; Z79.4 Long term (current) use of insulin
CPT/HCPCS: 99284; 36415; 85025; 80048; 81001; A9270

== ENCOUNTER 2017-05-14 08:29 | Emergency (ER) | payer MEDICARE ==
[2017-05-14 09:36] LABS: ABSOLUTE BASOPHILS # (AUTO) 0.2 10^3/uL (0.0-0.2); ABSOLUTE EOSINOPHILS # (AUTO) 0.5 10^3/uL (0.0-0.6); ABSOLUTE LYMPHOCYTES (AUTO) 2.1 10^3/uL (0.5-4.7); ABSOLUTE MONOCYTES (AUTO) 0.8 10^3/uL (0.1-1.4); ABSOLUTE NEUT (AUTO) 9.1 10^3/uL (1.7-8.2); BASOPHILS % (AUTO) 1.4 % (0-2); EOSINOPHILS % (AUTO) 4.2 % (0-6); HEMATOCRIT 39.7 % (37.9-51.0); HGB HCT DIFFERENCE -0.7; LYMPHOCYTES % (AUTO) 16.7 % (13-45); MEAN CORPUSCULAR HEMOGLOBIN 26.1 pg (27.0-33.4); MEAN CORPUSCULAR HGB CONC 32.8 g/dL (32.0-36.0); MONOCYTES % (AUTO) 6.4 % (3-13); RED CELL DISTRIBUTION WIDTH 16.4 % (11.5-14.0); SEGMENTED NEUTROPHILS % (AUTO) 71.3 % (42-78); WHITE BLOOD COUNT 12.7 10^3/uL (4.0-10.5)
[2017-05-14 09:54] LABS: APPEARANCE,URINE CLEAR; BILIRUBIN,URINE NEGATIVE (NEGATIVE); GLUCOSE, URINE >=500 mg/dL (NEGATIVE); KETONES,URINE NEGATIVE (NEGATIVE); LEUKOCYTE ESTERASE,URINE NEGATIVE (NEGATIVE); NITRITE,URINE NEGATIVE (NEGATIVE); PROTEIN,URINE NEGATIVE (NEGATIVE); URINE SPECIFIC GRAVITY 1.037; UROBILINOGEN,URINE NEGATIVE mg/dL (<2.0)
[2017-05-14 09:56] LABS: ALANINE AMINOTRANSFERASE 24 U/L (21-72); ALBUMIN 4.1 g/dL (3.5-5.0); ALKALINE PHOSPHATASE 113 U/L (38-126); ANION GAP 16 (5-19); ASPARTATE AMINO TRANSFERASE 23 U/L (17-59); BILIRUBIN,DIRECT 0.5 mg/dL (0.0-0.4); BILIRUBIN,TOTAL 0.8 mg/dL (0.2-1.3); BLOOD UREA NITROGEN 14 mg/dL (7-20); CALCIUM 9.6 mg/dL (8.4-10.2); CARBON DIOXIDE 21 mmol/L (22-30); CHLORIDE 104 mmol/L (98-107); GLUCOSE 124 mg/dL (75-110); POTASSIUM 3.9 mmol/L (3.6-5.0); SODIUM 140.8 mmol/L (137-145); TOTAL PROTEIN 7.8 g/dL (6.3-8.2)
[2017-05-14 10:02] LABS: MEAN CORPUSCULAR VOLUME 80 fl (80-97)
--- NOTE | 2017-05-14 10:43 | ER Document Report ---
ED Flu Like - General Chief Complaint: Flu Symptoms Stated Complaint: FLU LIKE SYMPTOMS Time Seen by Provider: 05/14/17 08:56 Mode of Arrival: Medic Information source: Patient Notes: Pt is a 51 year old male who presents to the ER today for runny nose x 1 week with body aches. He denies fever/chills, cough, sore throat, sinus pressure, chest pain, shortness of breath, rash, or any other symptoms. TRAVEL OUTSIDE OF THE [place] IN LAST 30 DAYS: No - Related Data Allergies/Adverse Reactions: Penicillins Allergy (Verified 04/17/17 06:13) vancomycin Allergy (Verified 04/17/17 06:13) Past Medical History - General Information source: Patient - Social History Smoking Status: Never Smoker Chew tobacco use (# tins/day): No Frequency of alcohol use: None Drug Abuse: None Family History: Arthritis, CAD, COPD, CVA, DM, Hyperlipidemia, Hypertension, Thyroid Disfunction - Past Medical History Cardiac Medical History: Reports: Hx Hypercholesterolemia, Hx Hypertension Pulmonary Medical History: Reports: Hx Bronchitis, Hx Pneumonia Endocrine Medical History: Reports: Hx Diabetes Mellitus Type 2 - diabetic neuropathy all extremities Renal/ Medical History: Reports: Hx Benign Prostatic Hyperplasia, Hx Kidney Stones. Denies: Hx Peritoneal Dialysis Musculoskeltal Medical History: Reports Hx Arthritis, Reports Hx Gout, Reports Hx Muscle Weakness, Reports Hx Musculoskeletal Deformity, Reports Hx Musculoskeletal Trauma - hand Skin Medical History: Reports Hx Cellulitis Psychiatric Medical History: Reports: Hx Anxiety, Hx Bipolar Disorder, Hx Depression, Hx Obsessive Compulsive Disorder, Hx Post Traumatic Stress Disorder Traumatic Medical History: Reports: Hx Fractures Past Surgical History: Reports: Hx Adenoidectomy, Hx Cholecystectomy, Hx Orthopedic Surgery - back neck, right great toe amputation, Hx Tonsillectomy - Immunizations Immunizations up to date: Yes Hx Diphtheria, Pertussis, Tetanus Vaccination: Yes - 2014 Review of Systems - Review of Systems Constitutional: No symptoms reported EENT: See HPI Cardiovascular: No symptoms reported Respiratory: No symptoms reported Gastrointestinal: No symptoms reported Genitourinary: No symptoms reported Male Genitourinary: No symptoms reported Musculoskeletal: See HPI Skin: No symptoms reported Hematologic/Lymphatic: No symptoms reported Neurological/Psychological: No symptoms reported Physical Exam - Vital signs Vitals: Temp Pulse Resp BP Pulse Ox 97.3 F 87 16 133/61 H 96 05/14/17 08:36 05/14/17 08:36 05/14/17 08:36 05/14/17 08:36 05/14/17 08:36 - Notes Notes: PHYSICAL EXAMINATION: GENERAL: Well-appearing and in no acute distress. HEAD: Atraumatic, normocephalic. EYES: Pupils equal round and reactive to light, extraocular movements intact, sclera anicteric, conjunctiva are normal. ENT: ear canals without erythema or foreign body, TMs pearly bhatti with good bony landmarks, nares with mucoid discharge, oropharynx clear without exudates. Moist mucous membranes. NECK: Normal range of motion, supple without lymphadenopathy LUNGS: CTAB and equal. No wheezes rales or rhonchi. HEART: Regular rate and rhythm without murmurs ABDOMEN: Soft, no tenderness. No guarding, no rebound EXTREMITIES: Normal range of motion, no pitting edema. No cyanosis. NEUROLOGICAL: Cranial nerves grossly intact. Normal sensory/motor exams. PSYCH: Normal mood, normal affect. SKIN: Warm, Dry, normal turgor, no rashes or lesions noted Course - Re-evaluation Re-evalutation: 05/14/17 11:05 clinically pt has a cold. I advised him to take motrin and flonase for his symptoms, WBC is a little elevated at 12.7. urinalysis is clear of infection. - Vital Signs Vital signs: Temp Pulse Resp BP Pulse Ox 97.3 F 82 18 127/62 H 95 05/14/17 08:36 05/14/17 11:01 05/14/17 11:01 05/14/17 11:01 05/14/17 11:01 - Laboratory Result Diagrams: 05/14/17 09:25 05/14/17 09:25 Laboratory results interpreted by me: 05/14/17 05/14/17 05/14/17 09:25 09:25 09:40 WBC 12.7 H Hgb 13.0 L MCH 26.1 L RDW 16.4 H Absolute Neutrophils 9.1 H Carbon Dioxide 21 L Glucose 124 H Direct Bilirubin 0.5 H Urine Glucose (UA) >=500 H Discharge - Discharge Clinical Impression: Cold Condition: Stable Disposition: HOME, SELF-CARE Instructions: Upper Respiratory Illness ([facility]) Additional Instructions: Your symptoms are all consistent with a common cold. Take Motrin to help with the body aches And get Flonase [id number] to help with the stuffy nose. Return immediately for any new or worsening symptoms. Follow up with primary care provider, call tomorrow to make followup appointment. Referrals: CINDI MOORE MD [Primary Care Provider] - Follow up as needed
[2017-05-14 11:03] VITALS: BP 127/62
== END 2017-05-14 11:01 | disposition home or self-care (01) ==
LOC: ER 08:29
DX: J00 Acute nasopharyngitis [common cold] (principal); I10 Essential (primary) hypertension; Z88.0 Allergy status to penicillin; Z88.1 Allergy status to other antibiotic agents; E11.40 Type 2 diabetes mellitus with diabetic neuropathy, unspecified
CPT/HCPCS: 36415; 80053; 81001; 85025; 99284

== ENCOUNTER 2017-06-14 16:09 | Emergency (ER) | payer MEDICARE, MEDICAID ==
--- NOTE | 2017-06-14 17:17 | ER Document Report ---
ED General - General Chief Complaint: Anxiety Stated Complaint: SHORTNESS OF BREATH Time Seen by Provider: 06/14/17 16:22 Notes: The patient is a 51-year-old male, past medical history anxiety, SHANNAN, presents with mild shortness breath after he awoke from a nap this afternoon. He was gasping and called 911. By the time EMS arrived, he was no longer feeling short of breath and has no symptoms. He takes Klonopin 3 times a day and is supposed to wear a CPAP for his SHANNAN, but his primary care physician in [place] prior to being able to obtain a CPAP machine. Patient denies chest pain, current shortness of breath, fevers, nausea, vomiting, headache, leg swelling or abdominal pain. TRAVEL OUTSIDE OF THE [place] IN LAST 30 DAYS: No - Related Data Allergies/Adverse Reactions: Penicillins Allergy (Verified 04/17/17 06:13) vancomycin Allergy (Verified 04/17/17 06:13) Past Medical History - General Information source: Patient - Social History Smoking Status: Unknown if Ever Smoked Family History: Arthritis, CAD, COPD, CVA, DM, Hyperlipidemia, Hypertension, Thyroid Disfunction - Past Medical History Cardiac Medical History: Reports: Hx Hypercholesterolemia, Hx Hypertension Pulmonary Medical History: Reports: Hx Bronchitis, Hx Pneumonia Endocrine Medical History: Reports: Hx Diabetes Mellitus Type 2 - diabetic neuropathy all extremities Renal/ Medical History: Reports: Hx Benign Prostatic Hyperplasia, Hx Kidney Stones. Denies: Hx Peritoneal Dialysis Musculoskeltal Medical History: Reports Hx Arthritis, Reports Hx Gout, Reports Hx Muscle Weakness, Reports Hx Musculoskeletal Deformity, Reports Hx Musculoskeletal Trauma - hand Skin Medical History: Reports Hx Cellulitis Psychiatric Medical History: Reports: Hx Anxiety, Hx Bipolar Disorder, Hx Depression, Hx Obsessive Compulsive Disorder, Hx Post Traumatic Stress Disorder Traumatic Medical History: Reports: Hx Fractures Past Surgical History: Reports: Hx Adenoidectomy, Hx Cholecystectomy, Hx Orthopedic Surgery - back neck, right great toe amputation, Hx Tonsillectomy - Immunizations Immunizations up to date: Yes Hx Diphtheria, Pertussis, Tetanus Vaccination: Yes - 2014 Review of Systems - Review of Systems Notes: REVIEW OF SYSTEMS: CONSTITUTIONAL: -fevers, -chills EENT: -eye pain, -difficulty swallowing, -nasal congestion CARDIOVASCULAR:-chest pain, -syncope. RESPIRATORY: -cough, +SOB GASTROINTESTINAL: -abdominal pain, - nausea, -vomiting, -diarrhea GENITOURINARY: -dysuria, -hematuria MUSCULOSKELETAL: -back pain, -neck pain SKIN: -rash or skin lesions. HEMATOLOGIC: -easy bruising or bleeding. LYMPHATIC: -swollen, enlarged glands. NEUROLOGICAL: -altered mental status or loss of consciousness, -headache, - neurologic symptoms PSYCHIATRIC: +anxiety, -depression. ALL OTHER SYSTEMS REVIEWED AND NEGATIVE. Physical Exam - Vital signs Vitals: Temp Pulse Resp BP Pulse Ox 98.7 F 93 20 139/79 H 96 06/14/17 16:15 06/14/17 16:15 06/14/17 16:15 06/14/17 16:15 06/14/17 16:15 - Notes Notes: PHYSICAL EXAMINATION: GENERAL: Well-appearing, well-nourished and in no acute distress. HEAD: Atraumatic, normocephalic. EYES: Pupils equal round and reactive to light, extraocular movements intact, sclera anicteric, conjunctiva are normal. ENT: nares patent, oropharynx clear without exudates. Moist mucous membranes. NECK: Normal range of motion, supple without lymphadenopathy LUNGS: Breath sounds clear to auscultation bilaterally and equal. No wheezes rales or rhonchi. HEART: Regular rate and rhythm without murmurs ABDOMEN: Soft, nontender, normoactive bowel sounds. No guarding, no rebound. No masses appreciated. EXTREMITIES: Normal range of motion, no pitting or edema. No cyanosis. NEUROLOGICAL: Cranial nerves grossly intact. Normal speech, normal gait. Normal sensory and motor exams. PSYCH: Normal mood, normal affect. SKIN: Warm, Dry, normal turgor, no rashes or lesions noted. Course - Re-evaluation Re-evalutation: Patient appears very well. He is in no respiratory distress and his chest x- ray is clear. Vitals are normal. Suspect a component of his SHANNAN that led to gasping when he woke up from his nap earlier today. No evidence of pneumonia, PE or ACS at this time. He has a primary care physician and is scheduled to see him this week. Instructed patient about obtaining a CPAP machine during that time. - Vital Signs Vital signs: Temp Pulse Resp BP Pulse Ox 98.7 F 93 20 139/79 H 96 06/14/17 16:15 06/14/17 16:15 06/14/17 16:30 06/14/17 16:15 06/14/17 16:15 - Diagnostic Test Radiology reviewed: Image reviewed, Reports reviewed Radiology results interpreted by me: CXR: NAD Discharge - Discharge Clinical Impression: Dyspnea Qualifiers: Dyspnea type: unspecified Qualified Code(s): R06.00 - Dyspnea, unspecified Condition: Stable Disposition: HOME, SELF-CARE Instructions: Anxiety ([facility]) Additional Instructions: SHORTNESS OF BREATH OR DYSPNEA: You were evaluated for shortness of breath, or dyspnea. Dyspnea has many causes, and some are more serious than others. Sometimes it's impossible to diagnose the cause of dyspnea with the tests that are available on an emergency basis. Based on our evaluation today, you do not need hospitalization now. We found no evidence of pneumonia, collapsed lung, blood clots in the lung, tumors , or heart failure. Causes of non-specific dyspnea can include asthma or bronchospasm, hyperventilation, emotional distress, heart disease, emphysema, fibrosis of the lung, and stiffness of the chest wall. In healthy individuals with a single episode, it's sometimes reasonable to do nothing but wait to see if the problem occurs again. Additional tests used to evaluate dyspnea can include cardiac stress testing, echocardiography, pulmonary function testing, CAT scan of the chest, bronchoscopy or pulmonary biopsy. Return if shortness of breath persists or worsens, or if you develop chest pain, fever, cough, confusion, or fainting. NORMAL EXAM AND WORKUP: At this time, your examination and workup show no significant abnormality. No significant abnormal physical findings were noted. All laboratory, EKG, and imaging (x-ray, CT scans, ultrasound) studies that were ordered show no significant abnormality. Although your examination and all studies that were ordered showed no significant abnormal finding, there are no examinations and no studies that are 100% accurate. There is always the possibility that some abnormality could exist and not be detected with physical examination or within the limits and capabilities of laboratory and other studies. You should return or follow up as you were instructed on your visit today for further evaluation if your symptoms do not resolve. FOLLOW-UP CARE: If you have been referred to a physician for follow-up care, call the physician s office for an appointment as you were instructed or within the next two days. If you experience worsening or a significant change in your symptoms, notify the physician immediately or return to the Emergency Department at any time for re-evaluation. Referrals: CINDI MOORE MD [Primary Care Provider] - Follow up as needed
--- NOTE | 2017-06-14 17:31 | RADIOLOGY REPORT (SQ) ---
EXAM DESCRIPTION: CHEST PA/LAT COMPLETED DATE/TIME: 06/14/2017 4:58 pm REASON FOR STUDY: SOB COMPARISON: 09/25/2014 EXAM PARAMETERS: NUMBER OF VIEWS: two views TECHNIQUE: Digital Frontal and Lateral radiographic views of the chest acquired. RADIATION DOSE: NA LIMITATIONS: none FINDINGS: LUNGS AND PLEURA: No opacities, masses or pneumothorax. No pleural effusion. MEDIASTINUM AND HILAR STRUCTURES: No masses or contour abnormalities. HEART AND VASCULAR STRUCTURES: Heart normal size. No evidence for failure. BONES: No acute findings. HARDWARE: None in the chest. OTHER: No other significant finding. IMPRESSION: NO SIGNIFICANT RADIOGRAPHIC FINDING IN THE CHEST. TECHNICAL DOCUMENTATION: JOB ID: [id number] [employer]- All Rights Reserved
[2017-06-14 17:34] VITALS: BP 130/87
== END 2017-06-14 17:35 | disposition home or self-care (01) ==
LOC: ER 16:09
DX: R06.00 Dyspnea, unspecified (principal); F41.9 Anxiety disorder, unspecified; R06.02 Shortness of breath; Z79.899 Other long term (current) drug therapy; G47.33 Obstructive sleep apnea (adult) (pediatric)
CPT/HCPCS: 71020; 99283

== ENCOUNTER 2017-07-15 19:59 | Emergency (ER) | payer MEDICARE, MEDICAID ==
[2017-07-15] MEDS ORDERED: OXYCODONE-ACETAMINOPHEN 5-325 MG TABLET PO ONE (20:54)
--- NOTE | 2017-07-15 20:57 | ER Document Report ---
HPI - HPI Patient complains to provider of: fall, shoulder injury Onset: Just prior to arrival Onset/Duration: Persistent Quality of pain: Sharp Pain Level: 5 Context: Patient states he has a history of chronic pain due to diabetic peripheral neuropathy. Patient states that because of his neuropathy he will fall occasionally. Patient states that he has been off of his oxycodone as well as his Lyrica for several days and he feels that because he was not on his medication this precipitated his fall tonight. Patient states that on a carpeted surface landing on his right shoulder. Patient complains of right shoulder joint pain as well as right lateral neck pain and posterior neck pain. Patient states that he has been taking his pain medication more frequently than prescribed as well as his Lyrica more frequently than it is prescribed causing him to run out before he is due to get his refill. Associated Symptoms: Other - Neck, shoulder pain. denies: Fever, Headache, Vomiting Exacerbated by: Movement Relieved by: Denies Similar symptoms previously: No Recently seen / treated by doctor: No - ROS ROS below otherwise negative: Yes Systems Reviewed and Negative: Yes All other systems reviewed and negative - CONSTITUTIONAL Constitutional: DENIES: Fever - NEURO Neurology: DENIES: Headache, Weakness - GASTROINTESTINAL Gastrointestinal: DENIES: Nausea - MUSCULOSKELETAL Musculoskeletal: REPORTS: Extremity pain, Neck Pain. DENIES: Back Pain - DERM Skin Color: Normal Skin Problems: None Past Medical History - General Information source: Patient - Social History Smoking Status: Never Smoker Frequency of alcohol use: None Drug Abuse: None Occupation: None Lives with: Spouse/Significant other Family History: Arthritis, CAD, COPD, CVA, DM, Hyperlipidemia, Hypertension, Thyroid Disfunction Patient has suicidal ideation: No Patient has homicidal ideation: No - Past Medical History Cardiac Medical History: Reports: Hx Hypercholesterolemia, Hx Hypertension Pulmonary Medical History: Reports: Hx Bronchitis, Hx Pneumonia Endocrine Medical History: Reports: Hx Diabetes Mellitus Type 2 - diabetic neuropathy all extremities Renal/ Medical History: Reports: Hx Benign Prostatic Hyperplasia, Hx Kidney Stones. Denies: Hx Peritoneal Dialysis Musculoskeltal Medical History: Reports Hx Arthritis, Reports Hx Gout, Reports Hx Muscle Weakness, Reports Hx Musculoskeletal Deformity, Reports Hx Musculoskeletal Trauma - hand Skin Medical History: Reports Hx Cellulitis Psychiatric Medical History: Reports: Hx Anxiety, Hx Bipolar Disorder, Hx Depression, Hx Obsessive Compulsive Disorder, Hx Post Traumatic Stress Disorder Traumatic Medical History: Reports: Hx Fractures Past Surgical History: Reports: Hx Adenoidectomy, Hx Cholecystectomy, Hx Orthopedic Surgery - back neck, right great toe amputation, Hx Tonsillectomy - Immunizations Immunizations up to date: Yes Hx Diphtheria, Pertussis, Tetanus Vaccination: Yes - 2014 Vertical Provider Document - CONSTITUTIONAL Agree With Documented VS: Yes Exam Limitations: No Limitations General Appearance: WD/WN, No Apparent Distress - INFECTION CONTROL TRAVEL OUTSIDE OF THE [place] IN LAST 30 DAYS: No - HEENT HEENT: Atraumatic, Normocephalic - NECK Neck: Supple, Other - Right sternocleidomastoid muscle tenderness, posterior cervical tenderness, no step-off or deformity - RESPIRATORY Respiratory: Breath Sounds Normal, No Respiratory Distress O2 Sat by Pulse Oximetry: 95 - CARDIOVASCULAR Cardiovascular: Regular Rate, Regular Rhythm, No Murmur Pulses: Normal: Radial - BACK Back: Normal Inspection - MUSCULOSKELETAL/EXTREMETIES Musculoskeletal/Extremeties: MAEW, Tender - tenderness to the anterior aspect of right shoulder joint, no dislocation or deformity, No Edema - NEURO Level of Consciousness: Awake, Alert, Appropriate Motor/Sensory: No Motor Deficit Notes: No focal neurologic deficit - DERM Integumentary: Warm, Dry, No Rash Course - Re-evaluation Re-evalutation: 07/15/17 22:[address] Akbar regarding patient presentation, recommends against discharging patient home with any pain medication, advises outpatient follow-up with his pain management doctor and primary doctor - Vital Signs Vital signs: Temp Pulse Resp BP Pulse Ox 98.7 F 95 18 155/81 H 95 07/15/17 20:20 07/15/17 20:20 07/15/17 20:20 07/15/17 20:20 07/15/17 20:20 - Diagnostic Test Radiology reviewed: Reports reviewed Procedures - Immobilization Right Shoulder Pre-Proc Neuro Vasc Exam: Normal Immobilizer type: Sling Performed by: RN Post-Proc Neuro Vasc Exam: Normal Alignment checked and good: Yes Discharge - Discharge Clinical Impression: Elevated blood pressure reading Fall Qualifiers: Encounter type: initial encounter Qualified Code(s): W19.XXXA - Unspecified fall, initial encounter Sprain of shoulder, right Qualifiers: Encounter type: initial encounter Shoulder sprain type: unspecified sprain Qualified Code(s): S43.401A - Unspecified sprain of right shoulder joint, initial encounter Cervical strain, acute Qualifiers: Encounter type: initial encounter Qualified Code(s): S16.1XXA - Strain of muscle, fascia and tendon at neck level, initial encounter Chronic pain Qualifiers: Chronic pain type: other chronic pain Qualified Code(s): G89.29 - Other chronic pain Condition: Stable Disposition: HOME, SELF-CARE Instructions: Ice & Elevation ([facility]), Neck Injury (Cervical Strain) ([facility]), Shoulder Injury ([facility]), Sling as Treatment ([facility]), Temporary Sling ([facility]) Additional Instructions: Return immediately for any new or worsening symptoms Followup with your primary care provider, call tomorrow to make a followup appointment Follow-up with orthopedic doctor for any continued pain or problems Follow up with your pain management doctor for a reevaluation of your chronic pain Prescriptions: Naproxen [Naprosyn 250 Nmg Tablet] 1 tab PO BID #14 tablet Forms: Elevated Blood Pressure Referrals: [facility] [Provider Group] - Follow up as needed CINDI ROBERTS MD [NO LOCAL MD] - Follow up tomorrow
--- NOTE | 2017-07-15 21:22 | RADIOLOGY REPORT (SQ) ---
EXAM DESCRIPTION: CT CERVICAL SPINE WITHOUT COMPLETED DATE/TIME: 07/15/2017 9:13 pm REASON FOR STUDY: fall, neck pain COMPARISON: None. TECHNIQUE: Axial images acquired through the cervical spine without intravenous contrast. Images re viewed with lung, soft tissue and bone windows. Reconstructed coronal and sagittal MPR images review ed. Images stored on PACS. All CT scanners at this facility use dose modulation, iterative reconstruction, and/or weight based d osing when appropriate to reduce radiation dose to as low as reasonably achievable (ALARA). [facility]: Dose Right [facility]: CareDose [facility]: Dose Right [facility]: Teradose 4D [facility]: Smart US HealthVest RADIATION DOSE: Up-to-date CT equipment and radiation dose reduction techniques were employed. CTDIv ol: 30.3 mGy. DLP: 672 mGy-cm. mGy. LIMITATIONS: None. FINDINGS: ALIGNMENT: Anatomic. MINERALIZATION: Normal. VERTEBRAL BODIES: No fractures or dislocation. DISCS: Anterior fusion from C3 to C7. FACETS, LATERAL MASSES, POSTERIOR ELEMENTS: No fractures. No dislocation. No acute findings. HARDWARE: Anterior hardware from C3-C7. VISUALIZED RIBS: No fractures. LUNG APICES AND SOFT TISSUES: No significant or acute findings. OTHER: No other significant finding. IMPRESSION: SURGICAL CHANGES WITH ANTERIOR FUSION AND HARDWARE. NO ACUTE FINDINGS IN THE CERVICAL S PINE. TECHNICAL DOCUMENTATION: JOB ID: [id number] Quality ID # [id number]: Final reports with documentation of one or more dose reduction techniques (e.g., Au tomated exposure control, adjustment of the mA and/or kV according to patient size, use of iterative reconstruction technique) 2010 [employer]- All Rights Reserved
--- NOTE | 2017-07-15 21:32 | RADIOLOGY REPORT (SQ) ---
EXAM DESCRIPTION: SHOULDER RIGHT 2 OR MORE VIEWS COMPLETED DATE/TIME: 07/15/2017 9:20 pm REASON FOR STUDY: fall, r shoulder pain COMPARISON: None. NUMBER OF VIEWS: Three views. TECHNIQUE: Internal rotation, external rotation, and Y view images acquired of the right shoulder. LIMITATIONS: None. FINDINGS: MINERALIZATION: Normal. BONES: No acute fracture or dislocation. No worrisome bone lesions. JOINTS: No dislocation. VISUALIZED LUNGS AND RIBS: No pneumothorax. No rib fracture. SOFT TISSUES: No radiopaque foreign body. OTHER: No other significant finding. IMPRESSION: NEGATIVE STUDY OF THE RIGHT SHOULDER. NO RADIOGRAPHIC EVIDENCE OF ACUTE INJURY. TECHNICAL DOCUMENTATION: JOB ID: [id number] [employer]- All Rights Reserved
[2017-07-15] MEDS ORDERED: PREGABALIN 100 MG CAPSULE PO ONE (22:05)
[2017-07-15 22:56] VITALS: BP 153/79
== END 2017-07-15 22:38 | disposition home or self-care (01) ==
LOC: ER 19:59
DX: S43.401A Unspecified sprain of right shoulder joint, initial encounter (principal); W19.XXXA Unspecified fall, initial encounter; E11.42 Type 2 diabetes mellitus with diabetic polyneuropathy; G89.29 Other chronic pain; T40.2X6A Underdosing of other opioids, initial encounter; T42.6X6A Underdosing of other antiepileptic and sedative-hypnotic drugs, initial encounter; Z91.128 Patient's intentional underdosing of medication regimen for other reason; Z91.14 Patient's other noncompliance with medication regimen; M54.2 Cervicalgia; I10 Essential (primary) hypertension
CPT/HCPCS: 99284; 73030; 72125; A9270

== ENCOUNTER 2017-08-11 10:34 | Observation (INO) | payer MEDICARE, MEDICAID ==
[2017-08-11] MEDS ORDERED: ASPIRIN 81 MG TABLET, CHEWABLE PO ONE (10:37)
[2017-08-11 10:58] LABS: ABSOLUTE BASOPHILS # (AUTO) 0.2 10^3/uL (0.0-0.2); ABSOLUTE EOSINOPHILS # (AUTO) 0.2 10^3/uL (0.0-0.6); ABSOLUTE LYMPHOCYTES (AUTO) 2.5 10^3/uL (0.5-4.7); ABSOLUTE MONOCYTES (AUTO) 0.9 10^3/uL (0.1-1.4); ABSOLUTE NEUT (AUTO) 11.6 10^3/uL (1.7-8.2); BASOPHILS % (AUTO) 1.3 % (0-2); EOSINOPHILS % (AUTO) 1.1 % (0-6); HEMATOCRIT 38.1 % (37.9-51.0); HEMOGLOBIN 11.9 g/dL (13.5-17.0); HGB HCT DIFFERENCE -2.4; LYMPHOCYTES % (AUTO) 16.1 % (13-45); MEAN CORPUSCULAR HEMOGLOBIN 21.5 pg (27.0-33.4); MEAN CORPUSCULAR HGB CONC 31.3 g/dL (32.0-36.0); MEAN CORPUSCULAR VOLUME 69 fl (80-97); MONOCYTES % (AUTO) 5.9 % (3-13); RED BLOOD COUNT 5.54 10^6/uL (4.35-5.55); RED CELL DISTRIBUTION WIDTH 18.3 % (11.5-14.0); SEGMENTED NEUTROPHILS % (AUTO) 75.6 % (42-78); WHITE BLOOD COUNT 15.3 10^3/uL (4.0-10.5)
[2017-08-11 11:19] LABS: ALANINE AMINOTRANSFERASE 28 U/L (21-72); ALBUMIN 4.2 g/dL (3.5-5.0); ALKALINE PHOSPHATASE 165 U/L (38-126); ANION GAP 18 (5-19); ASPARTATE AMINO TRANSFERASE 18 U/L (17-59); BILIRUBIN,DIRECT 0.5 mg/dL (0.0-0.4); BILIRUBIN,TOTAL 0.5 mg/dL (0.2-1.3); BLOOD UREA NITROGEN 19 mg/dL (7-20); CALCIUM 9.3 mg/dL (8.4-10.2); CARBON DIOXIDE 20 mmol/L (22-30); CHLORIDE 103 mmol/L (98-107); CREATINE KINASE 115 U/L (55-170); CREATININE RESULT 1.01 mg/dL (0.52-1.25); GLUCOSE 260 mg/dL (75-110); SODIUM 140.8 mmol/L (137-145)
[2017-08-11 11:28] LABS: CREATINE KINASE MB 2.92 ng/mL (<4.55)
[2017-08-11 11:31] LABS: TROPONIN I < 0.012 ng/mL
[2017-08-11] MEDS ORDERED: NORMAL SALINE 1000 ML 1,000 ML IV ONE (11:35)
[2017-08-11] MEDS ORDERED: NITROGLYCERIN 5 MG (0.2 MG/HR) PATCH.TD24 TD ONE (11:37)
[2017-08-11] MEDS ORDERED: ACETAMINOPHEN 325 MG TABLET PO ONE (11:37)
--- NOTE | 2017-08-11 11:37 | RADIOLOGY REPORT (SQ) ---
EXAM DESCRIPTION: CHEST SINGLE VIEW COMPLETED DATE/TIME: 08/11/2017 11:21 am REASON FOR STUDY: cp COMPARISON: 06/14/2017. NUMBER OF VIEWS: One view. TECHNIQUE: Single frontal radiographic view of the chest acquired. LIMITATIONS: None. FINDINGS: LUNGS AND PLEURA: No opacities, masses or pneumothorax. No pleural effusion. MEDIASTINUM AND HILAR STRUCTURES: No masses. Contour normal. HEART AND VASCULAR STRUCTURES: Heart normal in size. Normal vasculature. BONES: No acute findings. HARDWARE: None in the chest. OTHER: No other significant finding. IMPRESSION: NO SIGNIFICANT RADIOGRAPHIC FINDING IN THE CHEST. TECHNICAL DOCUMENTATION: JOB ID: [id number] [employer]- All Rights Reserved
[2017-08-11 12:00] LABS: APPEARANCE,URINE CLEAR; BILIRUBIN,URINE NEGATIVE (NEGATIVE); GLUCOSE, URINE >=500 mg/dL (NEGATIVE); KETONES,URINE NEGATIVE (NEGATIVE); LEUKOCYTE ESTERASE,URINE NEGATIVE (NEGATIVE); NITRITE,URINE NEGATIVE (NEGATIVE); PROTEIN,URINE NEGATIVE (NEGATIVE); UROBILINOGEN,URINE NEGATIVE mg/dL (<2.0)
[2017-08-11] MEDS ORDERED: OXYCODONE-ACETAMINOPHEN 5-325 MG TABLET PO ONE (13:28)
--- NOTE | 2017-08-11 13:33 | ER Document Report ---
ED Cardiac - General Chief Complaint: Chest Pain Stated Complaint: CHEST PAIN Time Seen by Provider: 08/11/17 11:07 Notes: Patient is having pains in the center of his chest going to the left anterior chest since Sunday. He says the pain is constant and there are no factors that increase or decrease the pain. Denies any unusual activity or straining muscles. He uses a walker to get around. He has had a cough which has not been productive of any significant amount of phlegm. Has not had a fever although he has felt chills and sweats. Also notes that he is urinating frequently. Has a history of prostate problems. Denies a history of cardiac artery disease but has been diagnosed as having paroxysmal atrial fibrillation, not recently. He has been worked up by a soliciting freight agent in had an ultrasound in the monitor this past spring. PMH: Hypertension, IDDM, high cholesterol, GERD, prostatism, anxiety, diabetic neuropathy. TRAVEL OUTSIDE OF THE [place] IN LAST 30 DAYS: No - Related Data Allergies/Adverse Reactions: Penicillins Allergy (Verified 04/17/17 06:13) vancomycin Allergy (Verified 04/17/17 06:13) Home Medications: Current Home Medications Atorvastatin Calcium [Lipitor 40 mg Tablet] 40 mg PO QHS 08/11/17 [History] Clonazepam [Klonopin 1 mg Tablet] 1 mg PO Q8HP PRN 08/11/17 [History] Empagliflozin [Jardiance] 10 mg PO DAILY 08/11/17 [History] Insulin Detemir [Levemir Insulin 100 units/mL] 100 unit SUBCUT QHS 08/11/17 [ History] Insulin Lispro [Humalog Insulin (Lispro) 100 unit/mL] 120 unit SUBCUT MEALS [History] Omeprazole 20 mg PO DAILY 08/11/17 [History] Oxycodone HCl [Oxy-Ir 5 mg Tablet] 15 mg PO Q6HP PRN MDD 60 mg 08/11/17 [History ] Polyethylene Glycol 3350 [Miralax Powder 17 gm/Packet] 1 packet PO Q12 08/11/17 [History] Pregabalin [Lyrica 100 mg Capsule] 200 mg PO Q8 08/11/17 [History] Promethazine HCl [Phenergan 25 mg Tablet] 25 mg PO BIDP PRN 08/11/17 [History] Tamsulosin HCl [Flomax 0.4 mg Cap.sr] 0.4 mg PO DAILY 08/11/17 [History] Testosterone Cypionate [Depo-Testosterone] 200 mg IM SA@1000 08/11/17 [History] Tizanidine HCl [Zanaflex 4 mg Tablet] 4 mg PO Q8 08/11/17 [History] Past Medical History - Social History Smoking Status: Never Smoker Frequency of alcohol use: None Drug Abuse: None Family History: Arthritis, CAD, COPD, CVA, DM, Hyperlipidemia, Hypertension, Thyroid Disfunction Patient has suicidal ideation: No Patient has homicidal ideation: No - Past Medical History Cardiac Medical History: Reports: Hx Atrial Fibrillation - Paroxysmal, Hx Hypercholesterolemia, Hx Hypertension Pulmonary Medical History: Reports: Hx Bronchitis, Hx Pneumonia Endocrine Medical History: Reports: Hx Diabetes Mellitus Type 1, Hx Diabetes Mellitus Type 2 - diabetic neuropathy all extremities Renal/ Medical History: Reports: Hx Benign Prostatic Hyperplasia, Hx Kidney Stones Musculoskeltal Medical History: Reports Hx Arthritis, Reports Hx Gout, Reports Hx Muscle Weakness, Reports Hx Musculoskeletal Deformity, Reports Hx Musculoskeletal Trauma - hand Skin Medical History: Reports Hx Cellulitis Psychiatric Medical History: Reports: Hx Anxiety, Hx Bipolar Disorder, Hx Depression, Hx Obsessive Compulsive Disorder, Hx Post Traumatic Stress Disorder Traumatic Medical History: Reports: Hx Fractures Past Surgical History: Reports: Hx Adenoidectomy, Hx Cholecystectomy, Hx Orthopedic Surgery - back neck, right great toe amputation, Hx Tonsillectomy - Immunizations Immunizations up to date: Yes Hx Diphtheria, Pertussis, Tetanus Vaccination: Yes - 2014 Review of Systems - Review of Systems Notes: REVIEW OF SYSTEMS: CONSTITUTIONAL : Denies fever. Has had chills and sweats. EENT: Denies eye, ear, nose or mouth or throat pain or other symptoms. CARDIOVASCULAR: chest pain. See HPI RESPIRATORY: Has had a non-productive cough, little chest congestion, no shortness of breath. GASTROINTESTINAL: Denies abdominal pain or nausea, vomiting, or diarrhea. GENITOURINARY: Denies difficulty or painful urinating, nor blood in the urine, but has noted urinary frequency. MUSCULOSKELETAL: Denies back or neck pain. Denies joint pain or swelling. SKIN: Denies rash or skin lesions. NEUROLOGICAL: Denies LOC or altered mental status. Denies headache. Denies sensory loss or motor deficits. ALL OTHER SYSTEMS REVIEWED AND NEGATIVE. Physical Exam - Vital signs Vitals: Pulse Ox 96 08/11/17 10:38 Interpretation: Normal - Notes Notes: PHYSICAL EXAMINATION: GENERAL: Well-appearing, in no acute distress. Vital signs are all essentially normal. Anxious. HEAD: Atraumatic, normocephalic. ENT: oropharynx clear without exudates. Moist mucous membranes. NECK: Normal range of motion, supple. LUNGS: Breath sounds clear and equal bilaterally. May be slightly tender to press in the left anterior chest. No subcutaneous air felt. HEART: Regular rate and rhythm without murmurs. ABDOMEN: Soft, nontender. No guarding or rebound. BACK: No tenderness throughout entire back. EXTREMITIES: Normal range of motion without pain. No swelling or anything suggesting clots in the legs. Negative Homans bilaterally. NEUROLOGICAL: Normal speech, normal gait. Normal sensory, motor, and reflex exams. Awake, alert, and oriented x3. Cranial nerves normal. PSYCH: Normal mood, normal affect. Anxious. Somewhat depressed. SKIN: Warm, dry, no rashes. Course - Re-evaluation Re-evalutation: 08/11/17 13:48 A trial with 0.2 nitroglycerin patch did not result in any improvement in the patient's discomfort. In fact, he says he thinks it made it worse. - Vital Signs Vital signs: Temp Pulse Resp BP Pulse Ox 99.0 F 93 19 137/61 H 94 08/12/17 08:49 08/12/17 08:49 08/12/17 08:49 08/12/17 08:49 08/12/17 08:49 - Laboratory Result Diagrams: 08/11/17 10:45 08/11/17 10:45 Laboratory results interpreted by me: 08/11/17 08/11/17 08/11/17 10:45 10:45 11:41 WBC 15.3 H Hgb 11.9 L MCV 69 L MCH 21.5 L MCHC 31.3 L RDW 18.3 H Absolute Neutrophils 11.6 H Carbon Dioxide 20 L Glucose 260 H Direct Bilirubin 0.5 H Alkaline Phosphatase 165 H Urine Glucose (UA) >=500 H - Diagnostic Test Radiology results interpreted by me: 08/11/17 13:49 Chest x-ray is unremarkable and normal. - EKG Interpretation by Vt EKG shows normal: Sinus rhythm [place]/QRS: RBBB - Along with left anterior fascicular block per EKG machine Critical Care Note - Critical Care Note Total time excluding time spent on procedures (mins): 20 Discharge - Discharge Clinical Impression: Chest pain Condition: Stable Disposition: ADMITTED OBSERVATION Admitting Provider: Hospitalist Unit Admitted: Telemetry
[2017-08-11] MEDS ORDERED: ONDANSETRON HCL INJ/PF 4 MG/2 ML SDV IV PRN (13:48)
[2017-08-11] MEDS ORDERED: ONDANSETRON 4 MG TAB.RAPDIS PO PRN (13:48)
[2017-08-11] MEDS ORDERED: ACETAMINOPHEN 325 MG TABLET PO PRN (13:48)
[2017-08-11] MEDS ORDERED: OXYCODONE-ACETAMINOPHEN 5-325 MG TABLET PO PRN (13:57)
[2017-08-11] MEDS ORDERED: DEXTROSE 50%-WATER 25 GM/50 ML DISP.SYRIN IV PRN ×2 (13:58)
[2017-08-11] MEDS ORDERED: GLUCAGON,HUMAN RECOMB 1 MG INJ IM PRN (13:58)
[2017-08-11] MEDS ORDERED: DEXTROSE 40% GEL 15 GM TUBE PO PRN ×2 (13:58)
--- NOTE | 2017-08-11 14:07 | PDOC H&P ---
History of Present Illness Admission Date/PCP: August 11, 2017 Patient complains of: Chest pain History of Present Illness: FABIOLA FERNANDEZ is a 51 year old male with a history of diabetes who presents with a four-day history of chest pain. He reports that Sunday afternoon he began to have substernal chest pain. He describes it as a sharp pressure-like sensation. He reports that it is reproducible with palpation or with movement. He also has reported that he felt short of breath with this as well as noticed some palpitations. It was listed in the chart that he has atrial fibrillation although he denies any knowledge of having atrial fibrillation. He also reports having some chills but no fevers. He also has had a nonproductive cough. He denies any lower extremity edema. He denies any orthopnea or PND. The patient has pain that is easily reproducible with palpation of his left costochondral junction. Patient is admitted for monitoring overnight for chest pain. Past Medical History Cardiac Medical History: Reports: Atrial Fibrillation - Paroxysmal. The patient denied having H fibrillation to me., Hyperlipidema, Hypertension Pulmonary Medical History: Reports: Bronchitis, Pneumonia Endocrine Medical History: Reports: Diabetes Mellitus Type 2 - diabetic neuropathy all extremities, Other - Peripheral neuropathy Renal/ Medical History: Reports: Nephrolithiasis Malignancy Medical History: Reports: None Musculoskeltal Medical History: Reports: Arthritis, Gout Psychiatric Medical History: Reports: Bipolar Disorder, Depression, General Anxiety Disorder, Post Traumatic Stress Disorder Hematology: Reports: None Past Surgical History Past Surgical History: Reports: Cholecystectomy, Orthopedic Surgery - back neck , right great toe amputation, Tonsillectomy Social History Information Source: Patient Lives with: Alone Smoking Status: Never Smoker Frequency of Alcohol Use: None Hx Recreational Drug Use: No Drugs: None - Advance Directive Resuscitation Status: Full Code Family History Family History: Arthritis, CAD, COPD, CVA, DM, Hyperlipidemia, Hypertension, Thyroid Disfunction Family History: Father at age 73 and had arthritis but no coronary artery disease. Mother at age 85 and did have coronary artery disease. Parental Family History Reviewed: Yes Children Family History Reviewed: No Sibling(s) Family History Reviewed.: No Medication/Allergy Home Medications: Docusate Sodium [Colace 100 mg Capsule] 100 mg PO BID #60 capsule 09/25/14 Oxycodone HCl/Acetaminophen [Percocet 5-325 mg Tablet] 1 tab PO Q4H PRN #15 tablet 09/25/14 Prednisone [Deltasone 20 mg Tablet] 2 tab PO DAILY 4 Days tablet 09/25/14 Oxycodone HCl/Acetaminophen [Percocet 5-325 mg Tablet] 1 tab PO Q6HP PRN #15 tab 07/27/16 Trazodone HCl 100 mg PO QHS #30 tablet 07/27/16 Promethazine HCl [Phenergan 25 mg Tablet] 1 - 2 tab PO Q6H PRN #15 tablet Clonazepam [Klonopin 1 mg Tablet] 1 mg PO BID #12 tab 11/28/16 Doxycycline Hyclate 100 mg PO BID #14 capsule 03/26/17 Clindamycin HCl 300 mg PO BID #14 capsule 04/16/17 Naproxen [Naprosyn 250 Nmg Tablet] 1 tab PO BID #14 tablet 07/15/17 Allergies/Adverse Reactions: Penicillins Allergy (Verified 04/17/17 06:13) vancomycin Allergy (Verified 04/17/17 06:13) Review of Systems Constitutional: PRESENT: chills. ABSENT: fever(s), headache(s), night sweats, weight gain, weight loss Eyes: ABSENT: visual disturbances Ears: ABSENT: hearing changes Cardiovascular: PRESENT: as per HPI, chest pain, dyspnea on exertion, palpitations. ABSENT: edema, orthropnea Respiratory: PRESENT: cough. ABSENT: hemoptysis, sputum Gastrointestinal: ABSENT: abdominal pain, constipation, diarrhea, hematemesis, hematochezia, nausea, vomiting Genitourinary: ABSENT: dysuria, hematuria Musculoskeletal: PRESENT: back pain. ABSENT: joint swelling Integumentary: ABSENT: rash, wounds Neurological: PRESENT: paresthesias. ABSENT: abnormal gait, abnormal speech, confusion, dizziness, focal weakness, syncope Psychiatric: PRESENT: anxiety. ABSENT: depression Endocrine: ABSENT: cold intolerance, heat intolerance, polydipsia, polyuria Hematologic/Lymphatic: ABSENT: easy bleeding, easy bruising Physical Exam Vital Signs: Temp Pulse Resp BP Pulse Ox 98.0 F 96 20 142/69 H 97 08/11/17 10:49 08/11/17 10:39 08/11/17 12:01 08/11/17 12:00 08/11/17 12:01 General appearance: PRESENT: no acute distress, obese Head exam: PRESENT: atraumatic, normocephalic Eye exam: PRESENT: conjunctiva pink, EOMI, PERRLA. ABSENT: scleral icterus Ear exam: PRESENT: normal external ear exam Mouth exam: PRESENT: moist, tongue midline Neck exam: ABSENT: carotid bruit, JVD, lymphadenopathy, thyromegaly Respiratory exam: PRESENT: chest wall tenderness - Left costochondral junction, clear to auscultation norman. ABSENT: rales, rhonchi, wheezes Cardiovascular exam: PRESENT: RRR. ABSENT: diastolic murmur, rubs, systolic murmur Pulses: PRESENT: normal dorsalis pedis pul Vascular exam: PRESENT: normal capillary refill GI/Abdominal exam: PRESENT: normal bowel sounds, soft. ABSENT: distended, guarding, mass, organolmegaly, rebound, tenderness Extremities exam: ABSENT: calf tenderness, clubbing, pedal edema Neurological exam: PRESENT: alert, awake, oriented to person, oriented to place , oriented to time, oriented to situation, CN II-XII grossly intact. ABSENT: motor sensory deficit Psychiatric exam: PRESENT: appropriate affect Skin exam: PRESENT: dry, intact, warm. ABSENT: cyanosis, rash Results Laboratory Results: 08/11/17 10:45 08/11/17 10:45 08/11/17 08/11/17 08/11/17 10:45 10:45 11:41 WBC 15.3 H RBC 5.54 Hgb 11.9 L Hct 38.1 MCV 69 L MCH 21.5 L MCHC 31.3 L RDW 18.3 H Plt Count 415 Seg Neutrophils % 75.6 Lymphocytes % 16.1 Monocytes % 5.9 Eosinophils % 1.1 Basophils % 1.3 Absolute Neutrophils 11.6 H Absolute Lymphocytes 2.5 Absolute Monocytes 0.9 Absolute Eosinophils 0.2 Absolute Basophils 0.2 Sodium 140.8 Potassium 4.0 Chloride 103 Carbon Dioxide 20 L Anion Gap 18 BUN 19 Creatinine 1.01 Est GFR ( Amer) > 60 Est GFR (Non-Af Amer) > 60 Glucose 260 H Calcium 9.3 Total Bilirubin 0.5 AST 18 ALT 28 Alkaline Phosphatase 165 H Total Protein 8.0 Albumin 4.2 Urine Color STRAW Urine Appearance CLEAR Urine pH 5.0 Ur Specific Virgin 1.030 Urine Protein NEGATIVE Urine Glucose (UA) >=500 H Urine Ketones NEGATIVE Urine Blood NEGATIVE Urine Nitrite NEGATIVE Ur Leukocyte Esterase NEGATIVE Urine WBC (Auto) 0 08/11/17 08/11/17 10:45 10:45 Creatine Kinase 115 CK-MB (CK-2) 2.92 Troponin I < 0.012 Impressions: Chest X-Ray 08/11/17 10:38 IMPRESSION: NO SIGNIFICANT RADIOGRAPHIC FINDING IN THE CHEST. Assessment & Plan - Diagnosis (1) Chest pain Is this a current diagnosis for this admission?: Yes Plan: This is reproducible with palpation of the costochondral junction. He reports that his been continuous for the last 4 days. My suspicion is that this is not cardiac in nature. He will be given Naprosyn she has taken before. He will also be getting Percocet as needed. Will monitor on telemetry and check serial cardiac enzymes. If the enzymes are negative he can be discharged home tomorrow and if he continues to have pain follow-up as an outpatient with cardiology. (2) Diabetes mellitus Is this a current diagnosis for this admission?: Yes Plan: We will continue with sliding scale insulin. (3) Hypertension Is this a current diagnosis for this admission?: Yes (4) Hyperlipidemia Is this a current diagnosis for this admission?: Yes (5) Anxiety Is this a current diagnosis for this admission?: Yes Plan: Continue with Klonopin. - Time Time Spent: 50 to 70 Minutes - Plan Summary Plan Summary: We will admit for observation as I anticipate we can discharge him home tomorrow.
--- NOTE | 2017-08-11 14:07 | EKG REPORT ---
SEVERITY:- ABNORMAL ECG - SINUS RHYTHM RBBB AND LAFB : Confirmed by: Liss Gloria MD 11-Aug-2017 14:06:44
[2017-08-11] MEDS ORDERED: ENOXAPARIN SODIUM INJ 40 MG/0.4 ML DISP.SYRIN SUBCUT ONE (15:00)
[2017-08-11] MEDS: INSULIN LISPRO 100 UNIT/ML 3 ML VIAL SUBCUT PRN ×2 (16:48→22:26)
[2017-08-11] MEDS: NAPROXEN 250 MG TABLET PO SCH (17:12)
[2017-08-11] MEDS: DOCUSATE SODIUM 100 MG CAPSULE PO SCH (17:12)
[2017-08-11 18:22] LABS: CREATINE KINASE MB 2.58 ng/mL (<4.55)
[2017-08-11 18:27] LABS: TROPONIN I < 0.012 ng/mL
[2017-08-11] MEDS: OXYCODONE HCL IR 5 MG TABLET PO PRN (20:36)
[2017-08-11] MEDS: FAMOTIDINE 20 MG TABLET PO SCH (22:22)
[2017-08-11 23:44] LABS: TROPONIN I < 0.012 ng/mL
[2017-08-12] MEDS: OXYCODONE HCL IR 5 MG TABLET PO PRN ×2 (03:14→09:18)
[2017-08-12 05:55] LABS: TROPONIN I < 0.012 ng/mL
[2017-08-12] MEDS: INSULIN LISPRO 100 UNIT/ML 3 ML VIAL SUBCUT PRN (08:13)
[2017-08-12 08:16] VITALS: BP 137/61
[2017-08-12] MEDS: FAMOTIDINE 20 MG TABLET PO SCH (09:19)
[2017-08-12] MEDS: DOCUSATE SODIUM 100 MG CAPSULE PO SCH (09:19)
[2017-08-12] MEDS: NAPROXEN 250 MG TABLET PO SCH (09:19)
--- NOTE | 2017-08-12 09:44 | PDOC DISCHARGE SUMMARY ---
General - Admit/Disc Date/PCP Admission Date/Primary Care Provider: 08/11/17 14:15 Discharge Date: 08/12/17 - Discharge Diagnosis (1) Chest pain Is this a current diagnosis for this admission?: Yes Summary: Secondary to costochondritis. (2) Diabetes mellitus Is this a current diagnosis for this admission?: Yes (3) Hypertension Is this a current diagnosis for this admission?: Yes (4) Hyperlipidemia Is this a current diagnosis for this admission?: Yes (5) Anxiety Is this a current diagnosis for this admission?: Yes - Additional Information Resuscitation Status: Full Code Discharge Diet: Diabetic Discharge Activity: Activity As Tolerated Home Medications: Atorvastatin Calcium [Lipitor 40 mg Tablet] 40 mg PO QHS 08/11/17 Clonazepam [Klonopin 1 mg Tablet] 1 mg PO Q8HP PRN 08/11/17 Empagliflozin [Jardiance] 10 mg PO DAILY 08/11/17 Insulin Detemir [Levemir Insulin 100 units/mL] 100 unit SUBCUT QHS 08/11/17 Insulin Lispro [Humalog Insulin (Lispro) 100 unit/mL] 120 unit SUBCUT MEALS Omeprazole 20 mg PO DAILY 08/11/17 Oxycodone HCl [Oxy-Ir 5 mg Tablet] 15 mg PO Q6HP PRN MDD 60 mg 08/11/17 Polyethylene Glycol 3350 [Miralax Powder 17 gm/Packet] 1 packet PO Q12 08/11/17 Pregabalin [Lyrica 100 mg Capsule] 200 mg PO Q8 08/11/17 Promethazine HCl [Phenergan 25 mg Tablet] 25 mg PO BIDP PRN 08/11/17 Tamsulosin HCl [Flomax 0.4 mg Cap.sr] 0.4 mg PO DAILY 08/11/17 Testosterone Cypionate [Depo-Testosterone] 200 mg IM SA@1000 08/11/17 Tizanidine HCl [Zanaflex 4 mg Tablet] 4 mg PO Q8 08/11/17 Ibuprofen 800 mg PO TID PRN #90 tablet 08/12/17 History of Present Illness History of Present Illness: FABIOLA FERNANDEZ is a 51 year old male with a history of diabetes who presents with a four-day history of chest pain. He reports that Sunday afternoon he began to have substernal chest pain. He describes it as a sharp pressure-like sensation. He reports that it is reproducible with palpation or with movement. He also has reported that he felt short of breath with this as well as noticed some palpitations. It was listed in the chart that he has atrial fibrillation although he denies any knowledge of having atrial fibrillation. He also reports having some chills but no fevers. He also has had a nonproductive cough. He denies any lower extremity edema. He denies any orthopnea or PND. The patient has pain that is easily reproducible with palpation of his left costochondral junction. Patient is admitted for monitoring overnight for chest pain. Hospital Course Hospital Course: Patient was admitted with chest pain that was consistent with costochondritis on exam. His pain was reproducible with palpation of the left costochondral junction. The patient has continued to have pain but reports is slightly better with nonsteroidals. The patient had negative cardiac enzymes and unremarkable cardiac rhythms. Was felt that this is noncardiac in nature and represents costochondritis. Patient will be discharged home in stable condition. Patient's other medical problems were unchanged during this hospitalization. Physical Exam Vital Signs: Temp Pulse Resp BP Pulse Ox 99.0 F 93 19 137/61 H 94 08/12/17 08:49 08/12/17 08:49 08/12/17 08:49 08/12/17 08:49 08/12/17 08:49 Intake & Output 08/11/17 08/12/17 08/13/17 06:59 06:59 06:59 Intake Total 1806 Output Total 1750 Balance 56 Weight 127.8 kg General appearance: PRESENT: no acute distress Eye exam: PRESENT: conjunctiva pink. ABSENT: scleral icterus Mouth exam: PRESENT: dry mucosa Neck exam: ABSENT: JVD Respiratory exam: PRESENT: chest wall tenderness - Left costochondral tenderness., clear to auscultation norman. ABSENT: rales, rhonchi, wheezes Cardiovascular exam: PRESENT: RRR. ABSENT: diastolic murmur, rubs, systolic murmur GI/Abdominal exam: PRESENT: normal bowel sounds, soft. ABSENT: distended, guarding, mass, organolmegaly, rebound, tenderness Extremities exam: ABSENT: calf tenderness, clubbing, pedal edema Neurological exam: PRESENT: alert, awake, oriented to person, oriented to place , oriented to time, oriented to situation, CN II-XII grossly intact. ABSENT: motor sensory deficit Psychiatric exam: PRESENT: appropriate affect Skin exam: PRESENT: dry, intact, warm. ABSENT: cyanosis, rash Results Laboratory Results: 08/11/17 08/11/17 08/11/17 17:35 17:35 22:35 Creatine Kinase 108 103 CK-MB (CK-2) 2.58 Troponin I < 0.012 08/11/17 08/12/17 08/12/17 22:35 04:45 04:45 Creatine Kinase 86 CK-MB (CK-2) 2.60 2.30 Troponin I < 0.012 < 0.012 Impressions: Chest X-Ray 08/11/17 10:38 IMPRESSION: NO SIGNIFICANT RADIOGRAPHIC FINDING IN THE CHEST. Qualifiers PATEINT BEING DISCHARGED WITH ANY OF THE FOLLOWING DIAGNOSIS?: No Plan Discharge Plan: Patient is discharged to home. Follow-up with primary care in 2 weeks. Time Spent: Less than 30 Minutes
[2017-08-12] MEDS ORDERED: ENOXAPARIN SODIUM INJ 40 MG/0.4 ML DISP.SYRIN SUBCUT SCH (10:00)
== END 2017-08-12 09:49 | disposition home or self-care (01) ==
LOC: ER 10:34 → EH 14:15 → 4S 15:48
PROVIDERS: ADMIT Internal Medicine; ATTEND Internal Medicine
DX: M94.0 Chondrocostal junction syndrome [Tietze] (principal); E11.42 Type 2 diabetes mellitus with diabetic polyneuropathy; I10 Essential (primary) hypertension; E78.5 Hyperlipidemia, unspecified; F41.9 Anxiety disorder, unspecified; R68.83 Chills (without fever); R05 Cough; M54.9 Dorsalgia, unspecified; R61 Generalized hyperhidrosis; N40.1 Benign prostatic hyperplasia with lower urinary tract symptoms; R35.0 Frequency of micturition; I45.10 Unspecified right bundle-branch block; Z79.899 Other long term (current) drug therapy; Z90.49 Acquired absence of other specified parts of digestive tract; Z82.49 Family history of ischemic heart disease and other diseases of the circulatory system; Z79.4 Long term (current) use of insulin; Z87.442 Personal history of urinary calculi
CPT/HCPCS: 93005; 99285; 36415 ×2; 87086; 82553 ×2; 82962 ×2; 82550 ×2; 84484 ×2; 85025; 80053; 81001; 71010; 93010; G0378 ×3; A9270 ×14; J1650; J3490 ×3; J7030; J1815; S0119

== ENCOUNTER 2017-08-14 15:02 | Emergency (ER) | payer MEDICARE, MEDICAID ==
--- NOTE | 2017-08-14 15:43 | ER Document Report ---
ED Medical Screen (RME) - General Chief Complaint: Urinary Problem Stated Complaint: LEG NUMBNESS Time Seen by Provider: 08/14/17 15:35 Notes: Patient states she had a fall at his home on this past Sunday, approximately 2 days ago. Patient states that since the fall he has noticed some numbness in his legs and some weakness. He also states that he has had the inability to fill the urinary stream. He states he can feel when he has to urinate and when he finished that he cannot feel the stream. TRAVEL OUTSIDE OF THE [place] IN LAST 30 DAYS: No - Related Data Allergies/Adverse Reactions: Penicillins Allergy (Verified 08/14/17 15:12) vancomycin Allergy (Verified 08/14/17 15:12) Past Medical History - Social History Chew tobacco use (# tins/day): No Frequency of alcohol use: None Drug Abuse: None - Past Medical History Cardiac Medical History: Reports: Hx Atrial Fibrillation - Paroxysmal, Hx Hypercholesterolemia, Hx Hypertension Pulmonary Medical History: Reports: Hx Bronchitis, Hx Pneumonia Endocrine Medical History: Reports: Hx Diabetes Mellitus Type 1, Hx Diabetes Mellitus Type 2 - diabetic neuropathy all extremities Renal/ Medical History: Reports: Hx Benign Prostatic Hyperplasia, Hx Kidney Stones. Denies: Hx Peritoneal Dialysis Musculoskeltal Medical History: Reports Hx Arthritis, Reports Hx Gout, Reports Hx Muscle Weakness, Reports Hx Musculoskeletal Deformity, Reports Hx Musculoskeletal Trauma - hand Skin Medical History: Reports Hx Cellulitis Psychiatric Medical History: Reports: Hx Anxiety, Hx Bipolar Disorder, Hx Depression, Hx Obsessive Compulsive Disorder, Hx Post Traumatic Stress Disorder Traumatic Medical History: Reports: Hx Fractures Past Surgical History: Reports: Hx Adenoidectomy, Hx Cholecystectomy, Hx Orthopedic Surgery - back neck, right great toe amputation, Hx Tonsillectomy - Immunizations Immunizations up to date: Yes Hx Diphtheria, Pertussis, Tetanus Vaccination: Yes - 2014 History of Influenza Vaccine for 06/2017 - 11/2017 Season: Yes Influenza Administration Date for 06/2017 - 11/2017 Season: 07/27/17 Physical Exam - Vital signs Vitals: Temp Pulse Resp BP Pulse Ox 98.2 F 93 20 164/72 H 95 08/14/17 15:12 08/14/17 15:12 08/14/17 15:12 08/14/17 15:12 08/14/17 15:12 Course - Vital Signs Vital signs: Temp Pulse Resp BP Pulse Ox 98.2 F 93 20 164/72 H 95 08/14/17 15:12 08/14/17 15:12 08/14/17 15:12 08/14/17 15:12 08/14/17 15:12
[2017-08-14 16:05] LABS: ABSOLUTE LYMPHOCYTES (AUTO) 2.9 10^3/uL (0.5-4.7); ABSOLUTE MONOCYTES (AUTO) 0.8 10^3/uL (0.1-1.4); ABSOLUTE NEUT (AUTO) 7.9 10^3/uL (1.7-8.2); BASOPHILS % (AUTO) 0.8 % (0-2); HEMATOCRIT 38.3 % (37.9-51.0); HEMOGLOBIN 11.9 g/dL (13.5-17.0); HGB HCT DIFFERENCE -2.6; MEAN CORPUSCULAR HEMOGLOBIN 21.4 pg (27.0-33.4); MEAN CORPUSCULAR HGB CONC 31.1 g/dL (32.0-36.0); MEAN CORPUSCULAR VOLUME 69 fl (80-97); MONOCYTES % (AUTO) 6.3 % (3-13); RED BLOOD COUNT 5.56 10^6/uL (4.35-5.55); RED CELL DISTRIBUTION WIDTH 18.6 % (11.5-14.0); SEGMENTED NEUTROPHILS % (AUTO) 65.9 % (42-78)
[2017-08-14 16:06] LABS: ABSOLUTE BASOPHILS # (AUTO) 0.1 10^3/uL (0.0-0.2); ABSOLUTE EOSINOPHILS # (AUTO) 0.4 10^3/uL (0.0-0.6)
[2017-08-14 16:18] LABS: ALANINE AMINOTRANSFERASE 29 U/L (21-72); ALBUMIN 4.3 g/dL (3.5-5.0); ALKALINE PHOSPHATASE 155 U/L (38-126); ANION GAP 17 (5-19); ASPARTATE AMINO TRANSFERASE 16 U/L (17-59); BILIRUBIN,DIRECT 0.4 mg/dL (0.0-0.4); BILIRUBIN,TOTAL 0.4 mg/dL (0.2-1.3); BLOOD UREA NITROGEN 18 mg/dL (7-20); CALCIUM 9.7 mg/dL (8.4-10.2); CARBON DIOXIDE 21 mmol/L (22-30); CHLORIDE 103 mmol/L (98-107); GLUCOSE 265 mg/dL (75-110); POTASSIUM 4.2 mmol/L (3.6-5.0); SODIUM 140.7 mmol/L (137-145); TOTAL PROTEIN 8.2 g/dL (6.3-8.2)
[2017-08-14 16:18] LABS: APPEARANCE,URINE CLEAR; BILIRUBIN,URINE NEGATIVE (NEGATIVE); GLUCOSE, URINE >=500 mg/dL (NEGATIVE); KETONES,URINE NEGATIVE (NEGATIVE); LEUKOCYTE ESTERASE,URINE NEGATIVE (NEGATIVE); NITRITE,URINE NEGATIVE (NEGATIVE); PROTEIN,URINE NEGATIVE (NEGATIVE); UROBILINOGEN,URINE NEGATIVE mg/dL (<2.0)
[2017-08-14] MEDS ORDERED: NORMAL SALINE 1000 ML 1,000 ML IV ONE (16:45)
--- NOTE | 2017-08-14 16:52 | ER Document Report ---
ED General - General Chief Complaint: Urinary Problem Stated Complaint: LEG NUMBNESS Time Seen by Provider: 08/14/17 15:35 Mode of Arrival: Carried Information source: Patient Notes: patient is a 51-year-old gentleman with diabetes and Neuropathy and incontinence who presents to the ER today for increase to numbness in his bilateral legs after a fall 2 days ago in the shower. Patient states that he fell, slipping in the shower and hit his head, lost consciousness for "just a second." Patient states that his low back has been hurting him since that time and that he does not normally have any back pain. He states that he usually has urinary and stool incontinence, however he can usually feel himself going to the bathroom, he states that since the fall he has not been able to feel himself urinate, stating "I can feel the beginning and the end but not actually going to the bathroom in the middle." He is referring to urinating in the sentence. He also states that he is having bowel movements on himself without knowing. He states that "usually I know when I do it." TRAVEL OUTSIDE OF THE [place] IN LAST 30 DAYS: No - Related Data Allergies/Adverse Reactions: Penicillins Allergy (Verified 08/14/17 15:12) vancomycin Allergy (Verified 08/14/17 15:12) Past Medical History - General Information source: Patient - Social History Smoking Status: Never Smoker Chew tobacco use (# tins/day): No Frequency of alcohol use: None Drug Abuse: None Family History: Arthritis, CAD, COPD, CVA, DM, Hyperlipidemia, Hypertension, Thyroid Disfunction Patient has suicidal ideation: No Patient has homicidal ideation: No - Past Medical History Cardiac Medical History: Reports: Hx Atrial Fibrillation - Paroxysmal, Hx Hypercholesterolemia, Hx Hypertension Pulmonary Medical History: Reports: Hx Bronchitis, Hx Pneumonia Endocrine Medical History: Reports: Hx Diabetes Mellitus Type 1, Hx Diabetes Mellitus Type 2 - diabetic neuropathy all extremities Renal/ Medical History: Reports: Hx Benign Prostatic Hyperplasia, Hx Kidney Stones. Denies: Hx Peritoneal Dialysis Musculoskeltal Medical History: Reports Hx Arthritis, Reports Hx Gout, Reports Hx Muscle Weakness, Reports Hx Musculoskeletal Deformity, Reports Hx Musculoskeletal Trauma - hand Skin Medical History: Reports Hx Cellulitis Psychiatric Medical History: Reports: Hx Anxiety, Hx Bipolar Disorder, Hx Depression, Hx Obsessive Compulsive Disorder, Hx Post Traumatic Stress Disorder Traumatic Medical History: Reports: Hx Fractures Past Surgical History: Reports: Hx Adenoidectomy, Hx Cholecystectomy, Hx Orthopedic Surgery - back neck, right great toe amputation, Hx Tonsillectomy - Immunizations Immunizations up to date: Yes Hx Diphtheria, Pertussis, Tetanus Vaccination: Yes - 2014 Review of Systems - Review of Systems Constitutional: No symptoms reported EENT: No symptoms reported Cardiovascular: No symptoms reported Respiratory: No symptoms reported Gastrointestinal: No symptoms reported Genitourinary: No symptoms reported Male Genitourinary: No symptoms reported Musculoskeletal: See HPI Skin: No symptoms reported Hematologic/Lymphatic: No symptoms reported Neurological/Psychological: See HPI Physical Exam - Vital signs Vitals: Temp Pulse Resp BP Pulse Ox 98.2 F 93 20 164/72 H 95 08/14/17 15:12 08/14/17 15:12 08/14/17 15:12 08/14/17 15:12 08/14/17 15:12 - Notes Notes: PHYSICAL EXAMINATION: GENERAL: obese, in no acute distress. HEAD: Atraumatic, normocephalic. EYES: Pupils equal round and reactive to light, extraocular movements intact, sclera anicteric, conjunctiva are normal. NECK: Normal range of motion, supple without lymphadenopathy LUNGS: CTAB and equal. No wheezes rales or rhonchi. HEART: Regular rate and rhythm without murmurs ABDOMEN: Soft, no tenderness. No guarding, no rebound BACK: no vertebral tenderness, normal ROM GI/: no CVA tenderness rectal: very minimal rectal tone EXTREMITIES: Normal range of motion, no pitting edema. No cyanosis. NEUROLOGICAL: Decreased sensation to bilateral lower extremities,Cranial nerves grossly intact. PSYCH: Normal mood, normal affect. SKIN: Warm, Dry, normal turgor, no rashes or lesions noted Course - Vital Signs Vital signs: Temp Pulse Resp BP Pulse Ox 98.2 F 93 20 164/72 H 95 08/14/17 15:12 08/14/17 15:12 08/14/17 15:12 08/14/17 15:12 08/14/17 15:12 - Laboratory Result Diagrams: 08/14/17 15:15 08/14/17 15:15 Laboratory results interpreted by me: 08/14/17 08/14/17 08/14/17 15:15 15:15 15:15 WBC 12.0 H RBC 5.56 H Hgb 11.9 L MCV 69 L MCH 21.4 L MCHC 31.1 L RDW 18.6 H Plt Count 453 H ESR 49 H Carbon Dioxide 21 L Glucose 265 H AST 16 L Alkaline Phosphatase 155 H C-Reactive Protein Urine Glucose (UA) 08/14/17 08/14/17 15:15 15:56 WBC RBC Hgb MCV MCH MCHC RDW Plt Count ESR Carbon Dioxide Glucose AST Alkaline Phosphatase C-Reactive Protein 43.2 H Urine Glucose (UA) >=500 H Discharge - Discharge Clinical Impression: Neuropathy Fall Qualifiers: Encounter type: initial encounter Qualified Code(s): W19.XXXA - Unspecified fall, initial encounter Urinary incontinence Qualifiers: Urinary Incontinence type: unspecified incontinence Qualified Code(s): R32 - Unspecified urinary incontinence Condition: Stable Disposition: HOME, SELF-CARE Additional Instructions: Return immediately for any new or worsening symptoms. Follow up with primary care provider, keep your appointment tomorrow morning. Prescriptions: Cyclobenzaprine HCl [Flexeril 10 mg Tablet] 10 mg PO TIDP PRN #15 tab PRN Reason: Referrals: CINDI MOORE MD [Primary Care Provider] - Follow up as needed
--- NOTE | 2017-08-14 16:55 | RADIOLOGY REPORT (SQ) ---
EXAM DESCRIPTION: L SPINE 2 VIEWS COMPLETED DATE/TIME: 08/14/2017 4:43 pm REASON FOR STUDY: fall/pain COMPARISON: None. NUMBER OF VIEWS: Two views. TECHNIQUE: AP and lateral radiographic images acquired of the lumbar spine. LIMITATIONS: None. FINDINGS: MINERALIZATION: Normal. SEGMENTATION: Normal. No transitional anatomy. ALIGNMENT: Normal. VERTEBRAE: Maintained height. No fracture or worrisome bone lesion. DISCS: There is mild disc narrowing at L4-5 and L5-S1. POSTERIOR ELEMENTS: Hypertrophic facet changes are present from L4-S1. HARDWARE: None in the spine. PARASPINAL SOFT TISSUES: Normal. PELVIS: Intact as visualized. No fractures or worrisome bone lesions. SI joints intact. OTHER: No other significant finding. IMPRESSION: Mild degenerative disc changes and facet arthropathy. No acute abnormality. TECHNICAL DOCUMENTATION: JOB ID: [id number] [employer]- All Rights Reserved
[2017-08-14] MEDS ORDERED: LORAZEPAM INJ 2 MG/1 ML VIAL IV ONE (17:05)
[2017-08-14] MEDS ORDERED: MORPHINE SULFATE 10 MG/ML INJ IV ONE (18:27)
--- NOTE | 2017-08-14 18:59 | RADIOLOGY REPORT (SQ) ---
EXAM DESCRIPTION: MRI LUMBAR SPINE COMBO COMPLETED DATE/TIME: 08/14/2017 6:31 pm REASON FOR STUDY: n/t legs, incontinent fec/urine, neg rec tone COMPARISON: Plain films of the lumbar spine dated 08/12/2017 TECHNIQUE: Sagittal and Axial imaging includes T1, T1 post gadolinium, T2, STIR and gradient echo se quences. Coronal T2/HASTE imaging. CONTRAST TYPE AND DOSE: 20 mL MultiHance RENAL FUNCTION: GFR > 60. LIMITATIONS: None. FINDINGS: VISUALIZED UPPER ABDOMEN: Limited evaluation. No acute or suspicious findings suggested. SEGMENTATION: No transitional anatomy. The lowest well-developed disc space is labeled L5-S1. ALIGNMENT: Anatomic. VERTEBRAE: Intact. No fractures. BONE MARROW: Normal. No marrow replacement or reactive changes. DISC SIGNAL: A degree of disc degeneration is identified at the L3-L4, L4-L5 common L5-S1 disc space levels with some loss of the normal signal intensity POSTERIOR ELEMENTS: Generally intact. No pars defect evident. HARDWARE: None in the spine. CORD AND CONUS: Normal in size and signal intensity. Conus at the appropriate level. SOFT TISSUES: No aortic aneurysm seen. No bulky retroperitoneal adenopathy or mass. No paraspinal mas s or fluid. L1-L2: No significant spinal stenosis or exit foraminal stenosis. L2-L3: No significant spinal stenosis or exit foraminal stenosis. L3-L4: Mild symmetric disc bulging is identified and in conjunction with posterior ligamentous hypert rophy and facet arthropathy there is mild spinal stenosis without significant exit foraminal stenosis . L4-L5: Mild symmetric disc bulging is identified with a minimally convexed central component consiste nt with a small focal central disc protrusion. There is some minimal focal impingement on the anteri or thecal sac centrally. In conjunction with posterior ligamentous hypertrophy and facet arthropathy there is mild spinal stenosis without significant exit foraminal stenosis. L5-S1: A small focal disc protrusion is identified to the left of midline without significant impinge ment on the thecal sac. No significant spinal stenosis or exit foraminal stenosis is seen. LOWER THORACIC: Incompletely imaged. No stenosis seen. SACRUM: Visualized upper sacrum intact. ENHANCEMENT: No abnormal enhancement. OTHER: No other significant findings. IMPRESSION: Multilevel disc degeneration as noted above. Disc protrusions are identified at the L3- L4,-L4-L5 and L5-S1 disc space levels with mild spinal stenosis at the L3-L4 and L4-L5 levels. Other findings as noted above TECHNICAL DOCUMENTATION: JOB ID: [id number] [employer]- All Rights Reserved
[2017-08-14] MEDS ORDERED: HYDROCODONE/ACETAMINOPHEN 5-325 MG 6 TAB/DSPK PO PRN (19:12)
[2017-08-14 19:45] VITALS: BP 139/82
== END 2017-08-14 19:45 | disposition home or self-care (01) ==
LOC: ER 15:02
DX: E11.42 Type 2 diabetes mellitus with diabetic polyneuropathy (principal); M54.5 Low back pain; R55 Syncope and collapse; W18.2XXA Fall in (into) shower or empty bathtub, initial encounter; R32 Unspecified urinary incontinence; R15.9 Full incontinence of feces; I10 Essential (primary) hypertension; Z88.0 Allergy status to penicillin; Z88.1 Allergy status to other antibiotic agents
CPT/HCPCS: 99284; 96361; 96374; 96375; 36415; 85025; 85652; 86140; 80053; 81001; 72158; 72100; A9577; J2270; J2060; J7030; A9270

== ENCOUNTER 2017-08-26 22:59 | Emergency (ER) | payer MEDICARE, MEDICAID ==
[2017-08-26] MEDS ORDERED: INSULIN GLARGINE,HUM.REC.ANLOG 1,000 UNIT/10 ML UNIT SUBCUT ONE (23:30)
[2017-08-26] MEDS ORDERED: INSULIN GLARGINE,HUM.REC.ANLOG 1,000 UNIT/10 ML UNIT SUBCUT SCH (23:30)
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
[2017-08-27 00:13] LABS: ABSOLUTE BASOPHILS # (AUTO) 0.1 10^3/uL (0.0-0.2); ABSOLUTE EOSINOPHILS # (AUTO) 0.4 10^3/uL (0.0-0.6); ABSOLUTE LYMPHOCYTES (AUTO) 2.8 10^3/uL (0.5-4.7); ABSOLUTE MONOCYTES (AUTO) 0.7 10^3/uL (0.1-1.4); ABSOLUTE NEUT (AUTO) 9.7 10^3/uL (1.7-8.2); BASOPHILS % (AUTO) 0.7 % (0-2); HEMATOCRIT 40.8 % (37.9-51.0); HEMOGLOBIN 12.5 g/dL (13.5-17.0); HGB HCT DIFFERENCE -3.3; LYMPHOCYTES % (AUTO) 20.5 % (13-45); MEAN CORPUSCULAR HEMOGLOBIN 21.2 pg (27.0-33.4); MEAN CORPUSCULAR HGB CONC 30.6 g/dL (32.0-36.0); MEAN CORPUSCULAR VOLUME 69 fl (80-97); MONOCYTES % (AUTO) 5.3 % (3-13); RED BLOOD COUNT 5.88 10^6/uL (4.35-5.55); RED CELL DISTRIBUTION WIDTH 19.4 % (11.5-14.0); SEGMENTED NEUTROPHILS % (AUTO) 70.5 % (42-78); WHITE BLOOD COUNT 13.7 10^3/uL (4.0-10.5)
[2017-08-27 00:19] LABS: ALANINE AMINOTRANSFERASE 29 U/L (21-72); ALBUMIN 4.4 g/dL (3.5-5.0); ALKALINE PHOSPHATASE 167 U/L (38-126); ANION GAP 17 (5-19); ASPARTATE AMINO TRANSFERASE 18 U/L (17-59); BILIRUBIN,DIRECT 0.4 mg/dL (0.0-0.4); BILIRUBIN,TOTAL 0.5 mg/dL (0.2-1.3); BLOOD UREA NITROGEN 17 mg/dL (7-20); CARBON DIOXIDE 25 mmol/L (22-30); CHLORIDE 100 mmol/L (98-107); CREATININE RESULT 0.85 mg/dL (0.52-1.25); GLUCOSE 198 mg/dL (75-110); POTASSIUM 4.2 mmol/L (3.6-5.0); SODIUM 141.7 mmol/L (137-145); TOTAL PROTEIN 8.5 g/dL (6.3-8.2)
[2017-08-27 00:20] LABS: ALCOHOL < 10 mg/dL (NONE DETECTED)
[2017-08-27] MEDS ORDERED: CLONAZEPAM 1 MG TABLET PO ONE (00:23)
[2017-08-27] MEDS ORDERED: PREGABALIN 100 MG CAPSULE PO ONE (00:32)
[2017-08-27 01:08] LABS: APPEARANCE,URINE CLEAR; BILIRUBIN,URINE NEGATIVE (NEGATIVE); GLUCOSE, URINE >=500 mg/dL (NEGATIVE); KETONES,URINE NEGATIVE (NEGATIVE); LEUKOCYTE ESTERASE,URINE NEGATIVE (NEGATIVE); NITRITE,URINE NEGATIVE (NEGATIVE); PROTEIN,URINE 30 mg/dL (NEGATIVE); URINE SPECIFIC GRAVITY 1.035; UROBILINOGEN,URINE NEGATIVE mg/dL (<2.0)
--- NOTE | 2017-08-27 01:30 | RADIOLOGY REPORT (SQ) ---
EXAM DESCRIPTION: CERV SP 4 OR 5 VIEWS CLINICAL HISTORY: 51 years, Male, trauma COMPARISON: 07/15/2017, report only. NUMBER OF VIEWS: Six LIMITATIONS: None. FINDINGS: Anterior cervical hardware fusion between the C3 and C7 levels, intervertebral fusion, mild-moderate spondylosis, moderate straightening of the cervical spine, mild atlantoaxial osteoarthritis. No evidence of fracture or subluxation. Normal prevertebral soft tissue thickness. IMPRESSION: No acute findings. Cervical hardware fusion. 2011 [employer]- All Rights Reserved
[2017-08-27 02:03] LABS: URINE BARBITURATES SCREEN NEGATIVE; URINE METHADONE SCREEN NEGATIVE; URINE OPIATES LOW NEGATIVE; URINE PHENCYCLIDINE SCREEN NEGATIVE
--- NOTE | 2017-08-27 03:06 | EKG REPORT ---
SEVERITY:- ABNORMAL ECG - SINUS TACHYCARDIA RBBB AND LAFB : Confirmed by: Elliott Laurent 27-Aug-2017 03:06:32
[2017-08-27] MEDS ORDERED: HYDROXYZINE PAMOATE 50 MG CAPSULE PO ONE (03:35)
[2017-08-27] MEDS ORDERED: IBUPROFEN 800 MG TABLET PO ONE (04:00)
[2017-08-27] MEDS ORDERED: OXYCODONE HCL SR 10 MG TABLET PO SCH (04:30)
[2017-08-27] MEDS ORDERED: OXYCODONE HCL SR 10 MG TABLET PO ONE (04:37)
[2017-08-27 05:01] VITALS: BP 124/76
[2017-08-27] MEDS: IBUPROFEN 800 MG TABLET PO SCH ×2 (09:34→14:03)
[2017-08-27] MEDS: CLONAZEPAM 1 MG TABLET PO SCH ×2 (09:37→14:02)
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
[2017-08-27] MEDS ORDERED: INSULIN LISPRO 100 UNIT/ML 3 ML VIAL SUBCUT SCH (10:00)
[2017-08-27] MEDS ORDERED: TAMSULOSIN HCL 0.4 MG CAP.SR.24H PO SCH (10:00)
[2017-08-27] MEDS ORDERED: PROMETHAZINE HCL 25 MG TABLET PO SCH (10:00)
[2017-08-27] MEDS ORDERED: FAMOTIDINE 20 MG TABLET PO SCH (10:00)
[2017-08-27] MEDS: PREGABALIN 100 MG CAPSULE PO SCH ×2 (10:13→14:03)
[2017-08-27] MEDS ORDERED: GLUCAGON,HUMAN RECOMB 1 MG INJ IM PRN ×2 (10:52→11:07)
[2017-08-27] MEDS ORDERED: DEXTROSE 50%-WATER 25 GM/50 ML DISP.SYRIN IV PRN ×4 (10:52→11:07)
[2017-08-27] MEDS ORDERED: DEXTROSE 40% GEL 15 GM TUBE PO PRN ×4 (10:52→11:07)
[2017-08-27] MEDS ORDERED: INSULIN REG, HUMAN 100 UNIT/ML 3 ML VIAL (PYX) SUBCUT PRN ×2 (10:52→11:07)
[2017-08-27] MEDS ORDERED: INSULIN LISPRO 100 UNIT/ML 3 ML VIAL SUBCUT PRN (12:14)
[2017-08-27] MEDS ORDERED: DOCUSATE SODIUM 100 MG CAPSULE PO ONE (13:48)
[2017-08-27] MEDS ORDERED: ATORVASTATIN CALCIUM 40 MG TABLET PO SCH (18:00)
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
== END 2017-08-27 16:55 | disposition home or self-care (01) ==
LOC: ER 22:59
DX: F32.9 Major depressive disorder, single episode, unspecified (principal); R45.851 Suicidal ideations; Z63.0 Problems in relationship with spouse or partner; I45.2 Bifascicular block; I10 Essential (primary) hypertension; E11.9 Type 2 diabetes mellitus without complications; G62.9 Polyneuropathy, unspecified; R00.0 Tachycardia, unspecified; Z88.0 Allergy status to penicillin; Z88.1 Allergy status to other antibiotic agents
CPT/HCPCS: 93005; 99285; 36415; 82962; 80307 ×4; 85025; 80053; 81001; 72050; 93010; A9270 ×11; J1815